=== PATIENT | female | born 1965 | race Two or more races ===

== ENCOUNTER 2021-08-20 08:49 | Outpatient (REF) | payer OTHER, SELFPAY ==
--- NOTE | ~2021-08-20 | XR_ITS ---
EXAMINATION: XR LUMBAR SPINE XR SACROCOCCYX CLINICAL INFORMATION: Fall. COMPARISON: CT scan of 05/21/2011. TECHNIQUE: Three-view of the lumbar spine. 3 views of the sacrum and coccyx. FINDINGS: There is no evidence of acute fracture, spondylolisthesis, or spondylolysis of the lumbar spine. There is some marginal spurring L2 through S1. There is partial sacralization left side of L5. No significant sacroiliac joint abnormalities appreciated. There is calcification of a nonaneurysmal abdominal aorta. No significant sacroiliac joint abnormalities appreciated. There is some increased sclerosis seen involving the facet joints L4 through S1. XR/XR lumbar spine 2-3V IMPRESSION: Mild lumbar spondylosis as described without evidence of acute fracture, spondylolisthesis, or spondylolysis. No significant bony abnormality of the sacrum and coccyx identified.
--- NOTE | ~2021-08-20 | XR_ITS ---
EXAMINATION: XR LUMBAR SPINE XR SACROCOCCYX CLINICAL INFORMATION: Fall. COMPARISON: CT scan of 05/21/2011. TECHNIQUE: Three-view of the lumbar spine. 3 views of the sacrum and coccyx. FINDINGS: There is no evidence of acute fracture, spondylolisthesis, or spondylolysis of the lumbar spine. There is some marginal spurring L2 through S1. There is partial sacralization left side of L5. No significant sacroiliac joint abnormalities appreciated. There is calcification of a nonaneurysmal abdominal aorta. No significant sacroiliac joint abnormalities appreciated. There is some increased sclerosis seen involving the facet joints L4 through S1. XR/XR sacrum coccyx min 2V IMPRESSION: Mild lumbar spondylosis as described without evidence of acute fracture, spondylolisthesis, or spondylolysis. No significant bony abnormality of the sacrum and coccyx identified.
== END 2021-08-20 08:50 | disposition home or self-care (01) ==
LOC: HO.HMGCX 08:49
PROVIDERS: Visit Provider Nurse Practitioner Family
DX: Z91.81 History of falling (principal)
CPT/HCPCS: 72100; 72220

== ENCOUNTER → 2021-09-15 09:33 | Outpatient (BNVA) | payer OTHER, SELFPAY | PROVIDERS: PCP Nurse Practitioner Family; Referring Provider Nurse Practitioner Family; Visit Provider Surgery | DX: S30.0XXA Contusion of lower back and pelvis, initial encounter (principal) | CPT/HCPCS: 99202 ==

== ENCOUNTER 2021-09-29 08:53 | Outpatient (REF) | payer OTHER, SELFPAY ==
--- NOTE | ~2021-09-29 | US_ITS ---
EXAMINATION: US pelvic, LIMITED/FOLLOW UP CLINICAL INFORMATION: Pain and soreness right buttock post fall. Hematoma. COMPARISON: None TECHNIQUE: Grayscale and color imaging of the soft tissues of the right buttock using a linear and curved transducer FINDINGS: There is a 9.6 x 2.3 x 6.9 cm complex fluid collection in the right buttock likely representing a hematoma. US/US pelvic limited IMPRESSION: 9.6 x 2.3 x 6.9 cm complex fluid collection in the right buttock likely representing a hematoma.
== END 2021-09-29 08:54 | disposition home or self-care (01) ==
LOC: HO.HMGCX 08:53
PROVIDERS: PCP Nurse Practitioner Family; Visit Provider Surgery
DX: S30.0XXA Contusion of lower back and pelvis, initial encounter (principal); W19.XXXA Unspecified fall, initial encounter; Y93.9 Activity, unspecified; Y92.9 Unspecified place or not applicable; Y99.9 Unspecified external cause status
CPT/HCPCS: 76857

== ENCOUNTER → 2021-10-08 11:19 | Outpatient (BNVA) | payer OTHER, SELFPAY | PROVIDERS: PCP Nurse Practitioner Family; Referring Provider Nurse Practitioner Family; Visit Provider Surgery | DX: Z01.818 Encounter for other preprocedural examination (principal); S30.0XXD Contusion of lower back and pelvis, subsequent encounter | CPT/HCPCS: 99212 ==

== ENCOUNTER 2021-11-18 09:57 | Day surgery (SDC) | payer OTHER, SELFPAY ==
--- NOTE | 2021-11-17 09:35 | P.CONAN_ITS ---
Documented by User: Susanna Pritchard NP 11/17/21 09:36 HPI - Anesthesia Eval Consult details Narrative: 56yo F for Excision of large Hematoma to buttocks PMFSH Active Problems Active Problems: All Active Problems (Updated 09/10/21 @ 14:21 by MARKUS Canas) Hematoma (Acute) Post-menopausal (Acute) Physical exam (Acute) Fall (Acute) Social History Social History Housing: House Patient Tobacco Use Status: Current everyday Tobacco user Tobacco use type: Cigarette Cigarettes Per Day: 0.75 Smoked in Last 30 Days: No e-Cigarette/Vaping Use: Never Used Second Hand Smoke Exposure: Yes Use of substances other than those prescribed or required for medical reasons: No Are you DNR?: No Advance Directives: No Advance Directives Information Provided: Yes Recently lost weight without trying: No service: No Current occupational status: employed 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 [employer] Current occupational exposures/hazards: No Meds Allergies Allergy/AdvReac Type Severity Reaction Status Date / Time No Known Allergies Allergy Verified 10/08/21 11:25 Exam Exam Date and Time: November 17, 2021 0935 Assessment and Plan Assessment Anesthesia Assessment: Chart Reviewed Documented by User: Joi Zapata MD 11/18/21 12:42 HPI - Anesthesia Eval Consult details Narrative: 56yo F for Excision of large Hematoma to Right buttocks PMFSH Active Problems Active Problems: All Active Problems (Updated 09/10/21 @ 14:21 by TONNY Canas) Hematoma (Acute) Post-menopausal (Acute) Physical exam (Acute) Fall (Acute) Smoker. Smoked this am Family History Family history of problems with anesthesia: No Surgical History History of Problems with Anesthesia: No Social History Social History Housing: House Patient Tobacco Use Status: Current everyday Tobacco user Tobacco use type: Cigarette Cigarettes Per Day: 0.75 Smoked in Last 30 Days: No e-Cigarette/Vaping Use: Never Used Second Hand Smoke Exposure: Yes Use of substances other than those prescribed or required for medical reasons: No Are you DNR?: No Advance Directives: No Advance Directives Information Provided: Yes Recently lost weight without trying: No service: No Current occupational status: employed 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 Diminished Assessment and Plan Assessment Anesthesia Assessment: Anesthesia Plan Discussed Final Anesthetic Review Family History of Problems with Anesthesia: No History of Problems with Anesthesia: No NPO: Yes ASA Class: II Final Preanesthetic Review: No Changes in Pt Med Stat, Meds/Allgs Chart Reviewed, Consent Obtained/Reviewed and Anes Risks/Benef Reviewed Patient Risk: Low Procedure Risk: Low Assessment/Block/Sedation in SS: Assess/Block/Sedation-SS Anesthetic Plan Anesthetic Plan: GA Disposition: Standard PACU
[2021-11-18] VITALS (13 sets, daily range): BP systolic 106–127; BP diastolic 43–70; PULSE 53–75; RESP 12–18; TEMP 36.2–37.3; O2SAT 92–98; BMI 29.2
--- NOTE | 2021-11-18 10:58 | P.HPSUR_ITS ---
Pre-Procedural Eval Section A Date of Service: 11/18/21 Section B Chief Complaint: Other injury of unspecified body region, Details of Present Illness: Has had a hematoma on the right buttock a months after falling, with persistent pain Relevant Family History (Specify if Yes): No Relevant Social History: None Present Medications: see Short Stay Collaborative assessment Medical History: No relevant PMH History of Previous Operations: No relevant previous surgery Allergies: Allergies Allergy/AdvReac Type Severity Reaction Status Date / Time No Known Allergies Allergy Verified 10/08/21 11:25 Review of Systems Sugical H&P ROS: Negative: Constitution, Cardiovascular, Respiratory, Neurological, Psychiatric, Hem-Onc, Allergic/Immunologic, Gastrointestinal, Genitourinary, Musculoskeletal, Integumentary, Endocrine and Eyes/Ears/N ose/Throat Exam Surgical H&P Exam: Normal: HEENT, Normal: Heart, Normal: Lungs, Normal: Extremities, Normal: Abdomen, Normal: Skin and Normal: Neurological Exam Comment: swelling on the right buttock vague margins, some tenderness, Plan Diagnosis/Plan: Unchanged I have reviewed the history and physical and performed a pertinent physical examination on my patient. No changes have occurred unless specified.
[2021-11-18] MEDS: Lactated Ringers 1,000 ML 100 ML IVCONT (11:24)
--- NOTE | 2021-11-18 12:20 | P.OP_ITS ---
Operative Note Operative Note Date of Service: 11/18/21 Narrative: Preop diagnosis: hematoma, right buttock Postop diagnosis: Lipoma, right buttock Procedure: Excision of hematoma, right buttock Surgeon: Bridger Puckett MD district administrative assistant: SHARAD Arevalo The patient is a 56 year female who has had a mass on the right buttock states July,. She says she had noticed this after falling her backside at that time. She had ultrasound suggesting I hematoma as well. However, this did not resolve and decreased in size. She says that this continued to bother her so she wanted this removed. She understood the technique of excision under anesthesia. She was aware of the risks, benefits, and alternatives She was brought to the operating room placed in left lateral decubitus position under general anesthesia via LMA. The right buttock was prepped and draped in the usual sterile fashion. A surgical time-out was done. The patient received Vaseline 2 g IV preoperatively. The vague mass right buttock measured about 10 cm x 10 cm in diameter. I made a transverse incision in the skin overlying this after infiltration with lidocaine 1%. I am incision using blade 15. And this was carried down through the full-thickness of the skin subcutaneous fat with electrocautery. I continued to carried down this dissection on until I noticed that her was lipomatous mass underneath. This lipomatous mass was not well-defined and had poor planes. This was very loculated and it was difficult to for this of the rest of the subcutaneous layer. I continued to excise this lipomatous mass come off of the fascia of the buttock. This lipomatous tissue also broke down easily to smaller pieces. I then continued to remove whether worse left within the area in a piecemeal fashion. I then copiously irrigated the cavity. I had to remove some excess skin and subcutaneous fat adjacent to the incision. This was removed as a flap of excess skin and fat. I then proceeded to reapposed the deep subcutaneous layer with Dexon 3-0 interrupted sutures. Skin closure was achieved with Dexon 4-0 subcuticular running stitch. The incision was infiltrated with Marcaine 0.5% for postop analgesia and the procedure was completed The patient tolerated well. The complication noted. Initial and final counts of sponges and instruments were correct. Estimated blood loss was about 25 cc . The patient was extubated without difficulty and transferred to the recovery room with stable vital signs.
[2021-11-18] MEDS: oxyCODONE HCl Immed Release 5 MG TABLET PO ×2 (12:49→13:40)
[2021-11-18] MEDS: Acetaminophen 325 MG TABLET 650 MG PO (12:49)
[2021-11-18] MEDS: fentaNYL citrate/PF 100 MCG/2 ML VIAL 25 MCG IVPUSH ×4 (12:50→13:09)
== END 2021-11-18 14:54 | disposition home or self-care (01) ==
PROVIDERS: PCP Nurse Practitioner Family; Visit Provider Surgery
PROC: (CPT 21931; principal; 2021-11-18 11:50)
DX: D17.1 Benign lipomatous neoplasm of skin and subcutaneous tissue of trunk (principal); S30.0XXA Contusion of lower back and pelvis, initial encounter; W18.30XA Fall on same level, unspecified, initial encounter; Y93.9 Activity, unspecified; Y92.9 Unspecified place or not applicable; Y99.8 Other external cause status
CPT/HCPCS: 21931; 88304; J0690; J2250; J2405; J3010

== ENCOUNTER → 2021-12-01 09:41 | Outpatient (BNVA) | payer OTHER, SELFPAY | PROVIDERS: PCP Nurse Practitioner Family; Referring Provider Nurse Practitioner Family; Visit Provider Surgery | DX: Z13.89 Encounter for screening for other disorder (principal) ==

== ENCOUNTER → 2021-12-04 10:24 | Outpatient (BNVA) | payer OTHER, SELFPAY | PROVIDERS: PCP Nurse Practitioner Family; Referring Provider Nurse Practitioner Family; Visit Provider Surgery | DX: Z48.817 Encounter for surgical aftercare following surgery on the skin and subcutaneous tissue (principal); Z87.2 Personal history of diseases of the skin and subcutaneous tissue | CPT/HCPCS: 99212 ==

== ENCOUNTER → 2022-01-05 08:53 | Outpatient (BNVA) | payer OTHER, SELFPAY | PROVIDERS: PCP Nurse Practitioner Family; Visit Provider Surgery | DX: Z09 Encounter for follow-up examination after completed treatment for conditions other than malignant neoplasm (principal); D17.1 Benign lipomatous neoplasm of skin and subcutaneous tissue of trunk; Z80.0 Family history of malignant neoplasm of digestive organs | CPT/HCPCS: 99212 ==

== ENCOUNTER 2022-05-02 06:47 | Outpatient (REF) | payer OTHER, SELFPAY ==
[2022-05-02 11:22] LABS: MANUAL DIFF FLAG NO
[2022-05-02 11:30] LABS: Appearance Urine Cloudy; Color Urine Yellow; Glucose Urine UA Negative (Negative); Leukocyte Esterase Urine Negative (Negative); Nitrite Urine Negative (Negative); Specific Gravity - Urine 1.015 (1.005-1.025); Urine Blood Negative (Negative); Urine Ketones Negative (Negative); Urine Protein Negative (Neg-Trace)
[2022-05-02 11:33] LABS: Basophils Absolute Auto 0.1 X10*3/uL (0.0-0.2); Basophils Percent Auto 0.5 % (0-2); Eosinophils Absolute Auto 0.3 X10*3/uL (0.0-0.4); Eosinophils Percent Auto 2.7 % (0-4); Hemoglobin 13.3 g/dl (12.0-16.0); Imm Gran Abs Auto 0.03 X10*3/uL (0.00-0.03); Imm Gran Pct Auto 0.3 % (0.0-0.4); Lymphocytes Absolute Auto 3.1 X10*3/uL (1.2-4.9); Lymphocytes Percent Auto 33.5 % (20-40); Mean Corpuscular HGB Conc 31.7 g/dl (31.0-35.0); Mean Corpuscular Hemoglobin 28.4 pg (27.0-33.0); Mean Corpuscular Volume 89.7 fL (80.0-98.0); Mean Platelet Volume 10.1 fL (9.4-12.3); Monocytes Absolute Auto 0.9 X10*3/uL (0.1-1.2); Monocytes Percent Auto 9.5 % (2-11); Neutrophils Percent Auto 53.5 % (45-73); Platelet Count 230 X10*3/uL (160-400); Red Blood Count 4.68 X10*6/uL (4.20-5.50); Red Cell Distribution Width 13.4 % (11.0-16.0); White Blood Count 9.3 X10*3/uL (4.8-10.8)
[2022-05-02 11:54] LABS: Alanine Aminotransferase 18 U/L (0-31); Albumin Level 4.1 g/dL (3.5-5.0); Alkaline Phosphatase 131 U/L (39-117); Anion Gap 15 (12-20); Aspartate Amino Transferase 18 U/L (5-31); Bilirubin Total 0.2 mg/dL (0.0-1.0); Blood Urea Nitrogen 15 mg/dL (9-16); Calcium 9.1 mg/dL (8.4-10.2); Carbon Dioxide 25 mmol/L (22-29); Chloride 105 mmol/L (96-108); Cholesterol 236 mg/dL; Estimated Glomerular Filt Rate 57; Glucose Fasting 103 mg/dL (60-99); HDL Cholesterol 39 mg/dL; LDL Cholesterol Calculated 147 mg/dl; Potassium 4.1 mmol/L (3.3-5.1); Sodium 141 mmol/L (135-145); Total Protein 6.9 g/dL (6.5-8.0); Triglycerides 253 mg/dL
[2022-05-02 12:18] LABS: TSH reflex Free T4 1.69 uIU/mL (0.32-4.0); Vitamin D 25-OH Total 24.7 ng/mL (>30)
== END 2022-05-02 06:48 | disposition home or self-care (01) ==
LOC: HO.HMGCLDS 06:47
PROVIDERS: PCP Nurse Practitioner Family; Visit Provider Nurse Practitioner Family
DX: Z00.00 Encounter for general adult medical examination without abnormal findings (principal); Z78.0 Asymptomatic menopausal state
CPT/HCPCS: 36415; 80053; 80061; 81003; 82306; 84443; 85025

== ENCOUNTER 2022-05-25 14:53 | Outpatient (REF) | payer OTHER, SELFPAY ==
--- NOTE | ~2022-05-25 | MM_ITS ---
EXAMINATION: MM SCREENING DIGITAL BREAST TOMOSYNTHESIS, BILATERAL CLINICAL INFORMATION: Screening. Asymptomatic. COMPARISON: Mammography: 02/24/2019 and studies dating back to 02/17/2017. TECHNIQUE: Digital breast tomosynthesis was performed in both the craniocaudal and mediolateral oblique views along with computer-aided detection (CAD). Synthesized 2D images were generated from the tomosynthesis. FINDINGS: The breasts are heterogeneously dense, which may obscure small masses (ACR BI-RADS breast composition Category c). There are no significant masses, abnormal suspicious calcifications, or other abnormalities. There is multiplicity and bilaterality of calcifications. There is a tight grouping of calcifications within the inferior aspect of the left breast which appear to be associated with a vessel. A tight, rounded grouping of calcifications is seen within the superior aspect of the right breast with the appearance of a calcifying fibroadenoma. MM/MM tomosynthesis screening BI IMPRESSION: No mammographic evidence of malignancy. ASSESSMENT: BI-RADS 2: Benign RECOMMENDATION: Routine annual mammography screening. This patient's information was entered into a reminder system with a target due date for their next mammogram.
== END 2022-05-25 14:54 | disposition home or self-care (01) ==
LOC: HO.MAMMO 14:53
PROVIDERS: PCP Nurse Practitioner Family; Visit Provider Nurse Practitioner Family
DX: Z12.31 Encounter for screening mammogram for malignant neoplasm of breast (principal)
CPT/HCPCS: 77063; 77067

== ENCOUNTER → 2022-05-25 15:46 | Outpatient (REF) | payer OTHER, SELFPAY ==
--- NOTE | 2022-05-25 15:51 | CA_ITS ---
Transthoracic Echocardiogram Patient (Last, First, Middle): Yeimi Sr L Gender: Female Date of : 1965 Age: 56 Procedure Date: 05/25/2022 Procedure Type: Transthoracic Echocardiogram Location: OP Height: 160.02 cm Weight: 74.84 kg BSA: 1.78 m2 Heart Rate: bpm BP: 133 / 72 mmHg Mill Operator Helper: MARC Referring MD: Raoul Gonsales [facility] Oxidation Engineer: Faraz Gordon MD Symptoms: R01.1 - Cardiac murmur, unspecified Study Quality: Fair ECG Rhythm: Sinus Conclusions: - Essentially normal study Findings Left Ventricle Normal left ventricular size, thickness, and systolic function. The visually estimated ejection fraction is between 60-65%. Spectral Doppler is indicative of a normal filling pattern. Right Ventricle Normal right ventricular cavity size and systolic function. Atria Both atria are normal in size. There is lipomatous hypertrophy of the interatrial septum. There is no evidence of interatrial shunt. Aortic Valve The aortic valve structure and function is likely normal. There is no aortic valve stenosis. There is no aortic valve regurgitation. Mitral Valve Normal mitral valve structure and function. There is trace mitral valve regurgitation. There is no mitral valve stenosis. Pulmonic Valve The pulmonic valve was not well visualized. Tricuspid Valve Likely normal tricuspid valve structure and function. There is trace tricuspid valve regurgitation. The right ventricular systolic pressure is normal. The right ventricular systolic pressure is 14 mmHg. Normal right atrial pressure. There is no evidence of pulmonary hypertension. Great Vessels All visible segments of the aorta are normal in size. The pulmonary artery was not well visualized. Venous The inferior vena cava is normal in size and collapses greater than 50% with inspiration. Pericardium/Pleural There is no evidence of pericardial effusion. Prior Study Comparison No significant change compared to prior study dated: 05/24/2019. Measurements 2D Linear Measurements IVSd: 1.21 0.6-0.9/0.6-1.0 cm LVIDd: 4.49 3.9-5.3/4.2-5.9 cm LVIDd Index: 2.52 2.4-3.2/2.2-3.1 cm/m2 LVIDs: 3.21 2.0-3.6 cm LVPWd: 1.26 0.7-1.1 cm Ao Root: 3.00 2.1-3.5 cm LA Diam: 4.00 2.7-3.8/3.0-4.0 cm LAIDs Index: 2.25 1.5-2.3 cm/m2 LV Mass: 256.50 67-162/88-224 g LV Mass Index: 144.10 43-95/49-115 g/m2 LVOT Diam: 2.00 3.0+(-)1.3 cm Mitral Valve MV Pk E: 0.84 MV PK A: 0.84 MV Decel Time: 222.00 E/A: 1.00 E'Lateral: 7.72 E'Medial: 6.96 E/E' Med: 12.10 E/E' Lat: 10.90 PHT: 65.00 MVA PHT: 3.38 Decel Spalding: 3.81 Aortic Valve AoV Pk Hilario: 1.80 AoV Mn Hilario: 1.02 AoV VTI: 0.38 AoV Pk Grad: 13.00 Aov Mn Grad: 5.00 TAHIR Cont.VTI: 2.31 LVOT LVOT Pk Hilario: 1.17 LVOT Mn Hilario: 0.70 LVOT VTI: 0.28 LVOT Pk Grad: 5.00 LVOT Mn Grad: 2.00 LVOT Diam: 2.00 LVOT Area: 3.14 Diastolic Function MV Pk E: 0.84 MV Pk A: 0.84 E/A: 1.00 E'Medial: 6.96 E/E' Med: 12.10 E' Laterial: 7.72 E/E' Lat: 10.90 Right Ventricle TAPSE (mm): 21.00 TVS' Hilario: 8.00 Tricuspid Valve TR Pk Hilario: 1.69 TR Pk Grad: 11.00 RA Press: 3.00 RVSP: 14.00 Great Vessels Aorta Ao Root-2D: 3.00 2.0-3.7 cm Ao Asc: 3.40 2.1-3.4 cm Pulmonary Valve PV Pk Hilario: 1.06 Peak PV Grad: 4.00 Updated in Other Vendor System with Status of Final Faraz Gordon MD electronically signed on 05/25/2022 5:57:45 PM with status of Final
== END ==
LOC: HO.CARD 15:46
PROVIDERS: PCP Nurse Practitioner Family; Visit Provider Nurse Practitioner Family
DX: R01.1 Cardiac murmur, unspecified (principal)
CPT/HCPCS: 93306

== ENCOUNTER 2022-06-12 14:02 | Outpatient (REF) | payer BC, OTHER, SELFPAY ==
--- NOTE | ~2022-06-12 | CT_ITS ---
EXAMINATION: CT CHEST SCREENING CLINICAL INFORMATION: Current smoker. 48 pack year history. COMPARISON: Previous chest x-ray from 2010 TECHNIQUE: Multidetector volumetric CT imaging of the chest is performed without contrast using low dose technique. Additional 2D coronal and sagittal reformatted images and axial 3D maximum intensity projection (MIP) images are generated on the CT workstation. This CT examination was performed using dose optimization techniques as appropriate, variously including the following: *Automated exposure control *Adjustment of mA and/or kV according to patient size (this includes techniques or standardized protocols for targeted exams where dose is matched to indication/reason for exam; i.e. extremities or head) *Use of iterative reconstruction technique DLP: 43 mGy-cm FINDINGS: LUNGS: There is evidence of mild emphysema. There are scattered areas of increased peribronchial attenuation. This is greatest in the upper lungs may represent respiratory bronchiolitis related to smoking. There is a 3 mm right upper lobe nodule axial image 196 series 5. There is a 3 mm left lower lobe nodule axial image 213 series 5. There are are increased peripheral interstitial markings and attenuation questionable for mild interstitial disease. No endobronchial or endotracheal lesion. MEDIASTINUM: The mediastinum is normal. CORONARY ARTERY CALCIFICATION: Moderate PLEURA: There is no pleural effusion. No pleural mass or thickening. AXILLA: No lymphadenopathy. UPPER ABDOMEN: Unremarkable OSSEOUS STRUCTURES: Mild degenerative changes of the spine. CT/CT lung screening IMPRESSION: Mild emphysema. Small pulmonary nodules. Increased peribronchial attenuation questionable respiratory bronchiolitis related to smoking. There is also question of mild interstitial disease. Moderate coronary artery calcification. ASSESSMENT: Lung-RADS category 2: Benign RECOMMENDATION: Annual low-dose chest CT follow-up recommended.
== END 2022-06-12 14:03 | disposition home or self-care (01) ==
LOC: HO.CT 14:02
PROVIDERS: PCP Nurse Practitioner Family; Visit Provider Physician Assistant Medical
DX: Z12.2 Encounter for screening for malignant neoplasm of respiratory organs (principal); F17.210 Nicotine dependence, cigarettes, uncomplicated
CPT/HCPCS: 71271; G0296

== ENCOUNTER → 2022-08-11 15:38 | Outpatient (BNVA) | payer BC, SELFPAY | PROVIDERS: PCP Nurse Practitioner Family; Visit Provider Internal Medicine | DX: Z13.89 Encounter for screening for other disorder (principal) ==

== ENCOUNTER 2022-09-16 10:17 | Outpatient (REF) | payer OTHER, SELFPAY ==
[2022-09-19 02:59] LABS: HPV mRNA E6/E7 rflx Not Detected (Not Detected)
== END 2022-09-16 10:18 | disposition home or self-care (01) ==
LOC: HO.LNP 10:17
PROVIDERS: PCP Nurse Practitioner Family; Visit Provider Obstetrics & Gynecology
DX: Z01.419 Encounter for gynecological examination (general) (routine) without abnormal findings (principal); Z11.51 Encounter for screening for human papillomavirus (HPV)
CPT/HCPCS: 87624; 88142

== ENCOUNTER 2022-11-12 06:23 | Day surgery (SDC) | payer OTHER, SELFPAY ==
[2022-11-09 09:38] VITALS: BMI 29.0
--- NOTE | 2022-11-11 11:56 | HO.ANESPROP2 ---
Documented by User: Susanna Pritchard NP 11/11/22 11:57 HPI - Anesthesia Eval Consult details Narrative: 57yo F for Colonoscopy PMFSH Active Problems Active Problems: All Active Problems (Updated 10/28/22 @ 09:17 by Raoul Gonsales, [facility]) Depression (Acute) Well woman exam (Acute) Family history of breast cancer (Acute) Family history of colon cancer (Acute) Systolic murmur (Acute) Nicotine dependence, cigarettes, uncomplicated (Acute) Post-menopausal (Acute) Past Medical History Medical History Family history of colon cancer Kienbock's disease Nicotine dependence, cigarettes, uncomplicated Systolic murmur Family History Family history of problems with anesthesia: No Surgical History Surgical History History of appendectomy History of History of excision of mass History of surgery on right wrist History of tonsillectomy Hx of tubal ligation History of Problems with Anesthesia: No Social History Social History Household Members: Spouse Housing: House Alcohol intake: never Patient Tobacco Use Status: Current everyday Tobacco user Tobacco use type: Cigarette Cigarette Packs Per Day: 1 Cigarettes Per Day: 20 e-Cigarette/Vaping Use: Never Used Second Hand Smoke Exposure: Yes Are you DNR?: No Advance Directives: No Advance Directives Information Provided: Yes Recently lost weight without trying: No Nutrition Risks: No Nutritional Risk Patient : No service: No Current occupational status: employed Current [place]: [employer] [place] [employer] Current occupational exposures/hazards: No Sexual orientation: Straight/Heterosexual Gender identity: Female Cognitive needs: No Hearing needs: No Vision needs: No Meds Allergies Allergy/AdvReac Type Severity Reaction Status Date / Time No Known Allergies Allergy Verified 10/28/22 08:59 Exam Exam Date and Time: November 11, 2022 1156 Height,Weight and Vital Signs: Height 5 ft 4 in Weight 76.657 kg Pertinent Lab Results Pertinent Lab Results: Laboratory Tests 05/02/22 05/02/22 06:57 06:57 WBC 9.3 Hgb 13.3 Hct 42.0 Plt Count 230 Sodium 141 Potassium 4.1 Chloride 105 Carbon Dioxide 25 BUN 15 Creatinine 1.00 Narrative Narrative: ECHO 05/2022 Conclusions: - Essentially normal study? Assessment and Plan Assessment Anesthesia Assessment: Chart Reviewed Final Anesthetic Review Family History of Problems with Anesthesia: No History of Problems with Anesthesia: No Documented by User: Clare Terrell MD 11/12/22 07:48 REPLACED BY [facility] Past Medical History Medical History Family history of colon cancer Kienbock's disease Nicotine dependence, cigarettes, uncomplicated Systolic murmur Surgical History Surgical History History of appendectomy History of History of excision of mass History of surgery on right wrist History of tonsillectomy Hx of tubal ligation History of Problems with Anesthesia: No Social History Social History Household Members: Spouse Housing: House Alcohol intake: never Patient Tobacco Use Status: Current everyday Tobacco user Tobacco use type: Cigarette Cigarette Packs Per Day: 1 Cigarettes Per Day: 20 e-Cigarette/Vaping Use: Never Used Second Hand Smoke Exposure: Yes Are you DNR?: No Advance Directives: No Advance Directives Information Provided: Yes Recently lost weight without trying: No Nutrition Risks: No Nutritional Risk Patient : No service: No Current occupational status: employed Current occupation: [employer] [place] [employer] Current occupational exposures/hazards: No Sexual orientation: Straight/Heterosexual Gender identity: Female Cognitive needs: No Hearing needs: No Vision needs: No Meds Allergies Allergy/AdvReac Type Severity Reaction Status Date / Time No Known Allergies Allergy Verified 10/28/22 08:59 Exam Airway Mallampati Class: II TM Dist: >3cm Neck ROM: Full Denture: Upper and Lower Loose/Missing/Broken Teeth: Yes, Upper and Lower Heart: RRR Lungs: CTA Assessment and Plan Final Anesthetic Review History of Problems with Anesthesia: No NPO: Yes ASA Class: II Final Preanesthetic Review: Meds/Allgs Chart Reviewed, Consent Obtained/Reviewed and Anes Risks/Benef Reviewed Patient Risk: Low Procedure Risk: Low Anesthetic Plan Anesthetic Plan: MAC: Disposition: Standard PACU
[2022-11-12 06:38] VITALS: BP 169/91; PULSE 80; RESP 20; TEMP 36.8; O2SAT 96
[2022-11-12] MEDS: Lactated Ringers 1,000 ML 100 ML IVCONT (07:07)
--- NOTE | 2022-11-12 07:14 | MHC.SHP ---
Pre-Procedural Eval Section A Date of Service: 11/12/22 The patient is an INPATIENT: No The History & Physical has been completed within 30 days and I have reviewed it.: No Section B Chief Complaint: Screening, Family history of colon cancer Relevant Family History (Specify if Yes): Yes Relevant Social History: Tobacco Use Present Medications: see Short Stay Collaborative assessment Medical History: Significant History (Family history of colon cancer Kienbock's disease Nicotine dependence, cigarettes, uncomplicated Systolic murmur) History of Previous Operations: Relevant previous surgery/procedure and date(s) (History of appendectomy History of History of excision of mass History of surgery on right wrist History of tonsillectomy) Allergies: Allergies Allergy/AdvReac Type Severity Reaction Status Date / Time No Known Allergies Allergy Verified 10/28/22 08:59 Review of Systems Sugical H&P ROS: Negative: Constitution, Cardiovascular, Respiratory and Gastrointestinal Exam Surgical H&P Exam: Normal: Heart, Normal: Lungs, Normal: Extremities and Normal: Abdomen Plan Diagnosis/Plan: Unchanged I have reviewed the history and physical and performed a pertinent physical examination on my patient. No changes have occurred unless specified. Time Spent With Patient Time: Total time managing care of this patient today ____ minutes.
--- NOTE | 2022-11-12 08:30 | P.OP_ITS ---
Operative Note Operative Note Date of Service: 11/12/22 Narrative: COLONOSCOPY TILL CECUM WITH BIOPSIES AND SNARE POLYPECTOMY Pre-op diagnosis: Colon cancer screening, personal history of colon polyps, family history of colon cancer Post-op diagnosis:? Gastric bypass surgery status, Colon polyps, diverticulosis, hemorrhoids Endoscopist:? Martina Ascencio MD Anesthesia:?MAC Consent: Indications for the procedure and potential complications of bleeding, perforation, reaction to medications and missed diagnosis were discussed with the patient and informed consent was obtained. Instrument: Olympus PCF H 190 L variable stiffness pediatric colonoscope Monitoring: Vital signs and clinical assessment, intermittent blood pressure monitoring, continuous EKG monitoring, Pulse oximetry and Carbon Dioxide monitoring were done throughout the procedure. Please see anesthesia flowsheet. Colon withdrawl time was 23 minutes. Procedure: The patient was placed in the left lateral decubitis position and pre-procedure medications were administered. After a digital rectal examination of the ano-rectum, the video colonoscope was inserted into the rectum and advanced through the colon to the cecum. The colonoscope was slowly withdrawn in a retrograde panoramic fashion and the colon mucosa was carefully examined including a retroflexed view of the rectum. Findings and interventions are described below. Procedure Difficulty: Without difficulty Findings: Terminal Ileum: Not evaluated Cecum: Normal Ascending Colon: A 4-5 mm sessile polyp in mid ascending colon, removed with a cold biopsy Transverse Colon: A 10 mm sessile polyp removed with a hot snare. Scattered moderate diverticulosis Descending Colon: Scattered moderate diverticulosis Sigmoid Colon: Moderate diverticulosis Rectum: A few 5 to 10 mm hyperplastic appearing polyps - one removed with a cold biopsy and a 2nd polyp removed with a hot snare. Ano-rectum: Moderate internal hemorrhoids and perianal skin tags Colon preparation: Good after some irrigation Impression and Post Procedure Diagnosis: Colonoscopy Findings: Four polyps removed Moderate diverticulosis seen in the left and transverse colon Moderate hemorrhoids on retroflexed exam. Plan: Await pathology results Patient has an appointment on 11/27/22 in the GI Clinic with Dr Oshea. Repeat Colonoscopy interval based on path results - in 3-5 years if polyps are adenomatous and 10 years if polyps are hyperplastic. Above findings were reviewed with the patient and colon polyps and di verticulosis handouts were given in the discharge area
[2022-11-12 08:31] VITALS: BP 104/52; PULSE 77; RESP 20; TEMP 36.1; O2SAT 94
[2022-11-12 08:46] VITALS: BP 134/67; PULSE 68; RESP 16; TEMP 36.2; O2SAT 94
== END 2022-11-12 09:41 | disposition home or self-care (01) ==
PROVIDERS: PCP Nurse Practitioner Family; Visit Provider Internal Medicine Gastroenterology
PROC: 0DJD8ZZ Inspection of Lower Intestinal Tract, Via Natural or Artificial Opening Endoscopic (ICD-10-PCS; CPT 45378; principal; 2022-11-12 07:30)
DX: Z12.11 Encounter for screening for malignant neoplasm of colon (principal); Z86.010 Personal history of colon polyps; Z80.0 Family history of malignant neoplasm of digestive organs; Z80.3 Family history of malignant neoplasm of breast; D12.3 Benign neoplasm of transverse colon; K63.5 Polyp of colon; K62.1 Rectal polyp; K57.30 Diverticulosis of large intestine without perforation or abscess without bleeding; K64.8 Other hemorrhoids; K64.4 Residual hemorrhoidal skin tags; M92.211 Osteochondrosis (juvenile) of carpal lunate [Kienbock], right hand; R01.1 Cardiac murmur, unspecified; Z79.899 Other long term (current) drug therapy; Z98.84 Bariatric surgery status; F17.210 Nicotine dependence, cigarettes, uncomplicated
CPT/HCPCS: 45385; 45380; 88305

== ENCOUNTER → 2022-11-27 13:36 | Outpatient (BNVA) | payer OTHER, SELFPAY | PROVIDERS: PCP Nurse Practitioner Family; Visit Provider Internal Medicine ==

== ENCOUNTER 2023-04-19 09:34 | Outpatient (AMB) | payer OTHER, SELFPAY ==
[2023-04-19 09:43] VITALS: BP 142/88; PULSE 79; O2SAT 97; BMI 28.2
--- NOTE | 2023-04-19 09:43 | MHC.PC.OV ---
Vital Signs 04/19/23 09:43 Height 5 ft 4 in Weight 164 lb 8 oz BMI 28.2 BP 142/88 H Blood Pressure Location Lt brachial Position Sitting Pulse 79 Pulse Source Pulse Oximeter Pulse Oximetry (%) 97 Oxygen Delivery Method Room Air Intake Visit Reasons: 3 month follow up (wellbutrin) Intake Note: pt mammo due next month did not get labs Allergies No Known Allergies Allergy (Verified 04/19/23 09:47) Medication List - Last Reconciled 04/19/23 by NILDA CanasMARGRET fluoxetine 10 mg PO DAILY 30 days Tobacco use date assessed: 04/19/23 Dental Screening Dental Screen Date: 04/19/23 Did you have a dental visit in the last 12 months?: No Did you have a dental problem in the last 6 months where you did not have access to dental care?: No Was dental information given to patient?: No HPI 3 month follow up (wellbutrin) HPI Details Depression: Pt reports that she stopped taking bupropion as it cause insomnia. Will start fluoxetine. Denies any SI and HI. PFSH Medical History Kienbock's disease Nicotine dependence, cigarettes, uncomplicated Systolic murmur Family history of colon cancer Surgical History Hx of colonoscopy Hx of tubal ligation History of excision of mass History of surgery on right wrist History of tonsillectomy History of appendectomy History of Social History Household Members: Spouse Housing: House Alcohol intake: never Patient Tobacco Use Status: Current everyday Tobacco user Tobacco use type: Cigarette Cigarettes Per Day: 10 e-Cigarette/Vaping Use: Never Used Second Hand Smoke Exposure: Yes service: No Current occupational status: employed 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 Darek Hu, Luciana Dotson, Shelton Ferris and colleagues, with an educational ayaz from [employer]. Review of Systems Const Reports as per HPI Physical exam (Primary Care) Vital Signs: Last Vital Signs Pulse 79 04/19/23 09:43 BP 142/88 H 04/19/23 09:43 Pulse Ox 97 04/19/23 09:43 Oxygen Delivery Method Room Air 04/19/23 09:43 BMI result Body Mass Index 28.2 Tobacco/Smoking Status: Tobacco use Status Tobacco use date assessed 04/19/23 04/19/23 09:49 Patient Tobacco Use Status Current everyday Tobacco 04/19/23 09:44 Tobacco use type Cigarette 04/19/23 09:44 e-Cigarette/Vaping Use Never Used 04/19/23 09:44 Thrive Assessment: Date of Thrive Assessment Date Thrive assessed 10/28/22 04/19/23 09:44 Const General: cooperative Orientation/consciousness: patient oriented x3 Resp Effort & Inspection: normal respiratory effort Auscultation: clear to auscultation bilaterally Cardio Other: ? faint systolic murmur Rate: regular rate Rhythm: regular rhythm Heart sounds: S1 normal heart sound present and S2 normal heart sound present Neuro General: patient oriented x3 Psych Appearance: grossly normal Mental Status: mental status grossly normal Speech and movement: Normal speech and movement present Affect: normal affect Attitude: cooperative Thought process: Normal thought process present Thought content: Normal thought content present Insight: Good insight present (Psych) Judgement: Good judgement present (Psych) Assessment and Plan Assessment & Plan (1) Depression: Code(s): F32.A - Depression, unspecified Plan The patient agreed to the use of a er medical technician for this encounter. Scribed for TONNY López by Madison Ruff er medical technician, on 04/19/2023 at 10:00 EST Medications: New fluoxetine 10 mg PO DAILY 30 tabs 2RF 30 days Coding Level of Care Code Est Pt Level 3 (12274) Diagnoses Depression F32.A
== END 2023-04-19 12:53 | disposition home or self-care (01) ==
PROVIDERS: PCP Nurse Practitioner Family; Visit Provider Nurse Practitioner Family
DX: F32.A Depression, unspecified (principal)
CPT/HCPCS: 99213

== ENCOUNTER 2023-05-28 08:38 | Outpatient (REF) | payer OTHER, SELFPAY | END 2023-05-28 08:39 | disposition home or self-care (01) | LOC: HO.MAMMO 08:38 | PROVIDERS: PCP Nurse Practitioner Family; Visit Provider Nurse Practitioner Family | DX: Z12.31 Encounter for screening mammogram for malignant neoplasm of breast (principal) | CPT/HCPCS: 77063; 77067 ==

== ENCOUNTER → 2023-05-28 08:45 | Outpatient (BNV) | payer OTHER, SELFPAY | PROVIDERS: PCP Nurse Practitioner Family; Visit Provider Radiology Diagnostic Radiology | DX: Z12.31 Encounter for screening mammogram for malignant neoplasm of breast (principal) | CPT/HCPCS: 77063; 77067 ==

== ENCOUNTER 2023-10-13 13:13 | Outpatient (REF) | payer OTHER, SELFPAY ==
[2023-10-13 13:31] LABS: MANUAL DIFF FLAG NO
[2023-10-13 13:58] LABS: Basophils Absolute Auto 0.1 X10*3/uL (0.0-0.2); Basophils Percent Auto 0.7 % (0-2); Eosinophils Absolute Auto 0.2 X10*3/uL (0.0-0.4); Eosinophils Percent Auto 2.5 % (0-4); Hematocrit 41.2 % (37.0-47.0); Hemoglobin 13.7 g/dl (12.0-16.0); Imm Gran Abs Auto 0.02 X10*3/uL (0.00-0.03); Imm Gran Pct Auto 0.2 % (0.0-0.4); Lymphocytes Absolute Auto 3.1 X10*3/uL (1.2-4.9); Lymphocytes Percent Auto 37.2 % (20-40); Mean Corpuscular HGB Conc 33.3 g/dl (31.0-35.0); Mean Corpuscular Hemoglobin 29.1 pg (27.0-33.0); Mean Corpuscular Volume 87.7 fL (80.0-98.0); Mean Platelet Volume 9.7 fL (9.4-12.3); Monocytes Absolute Auto 0.6 X10*3/uL (0.1-1.2); Monocytes Percent Auto 7.6 % (2-11); Neutrophils Absolute Auto 4.4 x10*3/uL (2.0-8.3); Neutrophils Percent Auto 51.8 % (45-73); Platelet Count 244 X10*3/uL (160-400); Red Cell Distribution Width 13.7 % (11.0-16.0); White Blood Count 8.4 X10*3/uL (4.8-10.8)
[2023-10-13 14:25] LABS: Anion Gap 10 (12-20); Blood Urea Nitrogen 10 mg/dL (9-16); C Reactive Protein 0.79 mg/dL (< or = 0.50); Calcium 9.2 mg/dL (8.4-10.2); Carbon Dioxide 25 mmol/L (22-29); Chloride 108 mmol/L (96-108); Estimated Glomerular Filt Rate > 60; Glucose Random 137 mg/dL (60-115); Potassium 3.4 mmol/L (3.3-5.1); Sodium 140 mmol/L (135-145)
[2023-10-13 14:41] LABS: Erythrocyte Sedimentation Rate 23 MM/HR (0-20)
[2023-10-13 14:43] LABS: Rheumatoid Factor < 13.0 IU/mL (<15.0)
[2023-10-14 15:43] LABS: Anti Nuclear Antibody Screen NEGATIVE (NEGATIVE)
== END 2023-10-13 13:14 | disposition home or self-care (01) ==
LOC: HO.LAB 13:13
PROVIDERS: Absent Provider Podiatrist; PCP Nurse Practitioner Family; Visit Provider Nurse Practitioner Family
DX: M25.571 Pain in right ankle and joints of right foot (principal)
CPT/HCPCS: 36415; 80048; 84550; 85025; 85652; 86038; 86140; 86431

== ENCOUNTER 2023-11-22 11:10 | Outpatient (AMB) | payer OTHER, SELFPAY ==
--- NOTE | 2023-11-22 11:15 | MHC.OFFVIS ---
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 No complaints. Last Pap/HPV was negative in 10/01 Last Mammogram was BI-RADS 1 in 06/03 Last Colonoscopy was done in 12/01 [facility] Medical History Kienbock's disease Nicotine dependence, cigarettes, uncomplicated Systolic murmur Family history of colon cancer Surgical History Hx of colonoscopy Hx of tubal ligation History of excision of mass History of surgery on right wrist History of tonsillectomy History of appendectomy History of Social History Household Members: Spouse Housing: House Alcohol intake: never Patient Tobacco Use Status: Current everyday Tobacco user Tobacco use type: Cigarette Cigarettes Per Day: 10 e-Cigarette/Vaping Use: Never Used Second Hand Smoke Exposure: Yes service: No Current occupational status: employed 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 Current occupational exposures/hazards: No Sexual orientation: Straight/Heterosexual Gender identity: Female Cognitive needs: No Hearing needs: No Vision needs: No Female Reproductive History Menstrual Total pregnancies: 4 Full term: 3 Number of Living Children: 3 Ab spontaneous: 1 Date of last pap smear: 09/16/22 Date of Mammogram: 05/28/23 Review of Systems Const All systems reviewed & are unremarkable except as noted in HPI and below Card Reports as per HPI Resp Reports as per HPI GI Reports as per HPI and Reports no additional complaints Reports as per HPI Physical Exam Const General: cooperative, healthy appearing and comfortable Chest Chest palpation & inspection: normal inspection of the chest and normal palpation of entire chest wall Breast/axilla inspection: normal inspection of the breasts and normal inspection of the axillae Breast/axilla palpation: normal palpation of the breasts, normal palpation of the axillae and no axillary lymphadenopathy Resp Effort & Inspection: normal respiratory effort Auscultation: clear to auscultation bilaterally Percussion: percussion normal Cardio Palpation: normal PMI Rate: regular rate Rhythm: regular rhythm Heart sounds: no murmurs and no rubs Peripheral pulses: Peripheral pulses 2+ throughout GI Inspection: Yes normal to inspection Palpation (GI): Soft to palpation, nontender, no guarding, not rigid and No hepatosplenomegaly present Percussion: Yes normal to percussion Auscultation: normal bowel sounds Rectal Exam - Female: deferred General: Yes bladder normal to palpation External Female Exam: No lesion Speculum Exam - Vagina: normal appearance of the vagina, normal palpation, normal vaginal discharge and not erythematous Speculum Exam - Cervix: normal appearance of the cervix and normal palpation Bimanual exam- vagina & uterus: normal bimanual exam, normal palpation, uterine size normal, bladder normal to palpation, consistency normal and normal palpation Bimanual Exam- Adnexa, other: normal adnexae, no masses and no tenderness Assessment & Plan Assessment & Plan (1) Well woman exam: Code(s): Z01.419 - Encounter for gynecological examination (general) (routine) without abnormal findings Category: Medical Plan: Co testing not indicated this year. Counseled the patient about the recommended dietary allowance of 1200 mg of Calcium & 600 IU of vitamin D. Instructions given the patient to schedule next screening Mammogram in 06/04. The patient was instructed to perform monthly self-breast exams and schedule annual exam in a year. All questions answered and the patient verbalized understanding. Coding Level of Care Code New Pt Prev Care 40-64y(72437) Diagnoses Well woman exam Z01.419
[2023-11-22 11:16] VITALS: BP 126/82; BMI 28.7
== END 2023-11-22 11:41 | disposition home or self-care (01) ==
PROVIDERS: Visit Provider Obstetrics & Gynecology
DX: Z01.419 Encounter for gynecological examination (general) (routine) without abnormal findings (principal)
CPT/HCPCS: 99396

== ENCOUNTER 2023-11-22 11:10 | Outpatient (REF) | payer OTHER, SELFPAY | END 2023-11-22 11:11 | disposition home or self-care (01) | LOC: HO.LNP 11:10 | PROVIDERS: Visit Provider Obstetrics & Gynecology | DX: R31.29 Other microscopic hematuria (principal) | CPT/HCPCS: 87086 ==

== ENCOUNTER 2024-01-17 10:07 | Outpatient (REF) | payer OTHER, SELFPAY ==
[2024-01-19 18:03] LABS: Urine Cytology See Pathology rpt
== END 2024-01-17 10:08 | disposition home or self-care (01) ==
LOC: HO.LAB 10:07
PROVIDERS: PCP Nurse Practitioner Family; Visit Provider Urology
DX: R31.29 Other microscopic hematuria (principal); F17.210 Nicotine dependence, cigarettes, uncomplicated
CPT/HCPCS: 81003; 88112

== ENCOUNTER 2024-01-17 10:07 | Outpatient (AMB) | payer OTHER, SELFPAY ==
--- NOTE | 2024-01-17 10:08 | MHC.OFFVIS ---
Intake Visit Reasons: microhematuria Intake Note: Patient is present for microhematuria Urology Medication:none Antibiotic Allergy:none Blood Thinner:none Tunnel Elastic Operator Lockstitch Required: No Allergies No Known Allergies Allergy (Verified 01/17/24 10:08) Medication List - Last Reconciled 01/17/24 by Cornelio Bah MD fluoxetine 10 mg PO DAILY 90 days HPI Comments Details: Yeimi is a 58-year-old female who is here for evaluation due to microscopic hematuria. Comorbidity nicotine dependence. She was sent by guest relations officer for evaluation. I have discussed reasons for blood in the urine may include but are not limited to kidney stones, cancer in the urinary tract, kidney disease or inflammatory conditions of the urinary tract. I have discussed workup to include cystoscopy evaluation. Discussed importance for nicotine cessation. Will send urine for cytology, follow-up office cystoscopy. Small Electric Engine Technician Dr. You has already ordered a CT abdomen and pelvis with and without IV contrast. [facility] Medical History Kienbock's disease Nicotine dependence, cigarettes, uncomplicated Systolic murmur Family history of colon cancer Surgical History Hx of colonoscopy Hx of tubal ligation History of excision of mass History of surgery on right wrist History of tonsillectomy History of appendectomy History of Social History Household Members: Spouse Housing: House Alcohol intake: never Patient Tobacco Use Status: Current everyday Tobacco user Tobacco use type: Cigarette Cigarettes Per Day: 10 e-Cigarette/Vaping Use: Never Used Second Hand Smoke Exposure: Yes service: No Current occupational status: employed 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 Current occupational exposures/hazards: No Sexual orientation: Straight/Heterosexual Gender identity: Female Cognitive needs: No Hearing needs: No Vision needs: No Review of Systems Const All systems reviewed & are unremarkable except as noted in HPI and below Reports no additional complaints Eyes Reports no additional complaints ENT Reports no additional complaints Card Reports no additional complaints Resp Reports no additional complaints GI Reports no additional complaints Reports as per HPI Musc Reports no additional complaints Skin/Breast Reports system reviewed and no additional complaints, except as documented Neuro Reports no additional complaints Psych Reports no additional complaints Endo Reports no additional complaints Estevan/Lymph Reports no additional complaints Aller/Immun Reports no additional complaints Physical Exam Const General: cooperative, healthy appearing and no acute distress Orientation/consciousness: patient oriented x3 HEENT Head: Yes normal to inspection, Yes normocephalic and Yes atraumatic Eyes Conjunctivae: conjunctivae normal Neck Neck: Yes normal visual inspection and Yes trachea midline Chest Chest palpation & inspection: normal inspection of the chest Resp Effort & Inspection: normal respiratory effort Cardio Rate: regular rate GI Inspection: Yes normal to inspection Skin General skin exam: no rashes or lesions noted Neuro General: patient oriented x3 Extrem General: No edema Psych Appearance: grossly normal Results AMB Urinalysis, Automated UA Leukoctes 0 Tyrell/uL Last Edit by NATHANAEL Alonso on 01/17/24 10:21 UA Nitrite Negative Last Edit by NATHANAEL Alonso on 01/17/24 10:21 UA Urobilinogen 0.2 mg/dL Last Edit by Filemon Tucker CCM on 01/17/24 10:21 UA Protein 15 mg/dL Last Edit by Filemon Tucker CCM on 01/17/24 10:21 UA pH 6.0 Last Edit by Filemon Tucker CCM on 01/17/24 10:21 UA Blood 0 Jose/uL Last Edit by NATHANAEL Alonso on 01/17/24 10:21 UA Specific Durand 1.015 Last Edit by Filemon Tucker CCM on 01/17/24 10:21 UA Ketone Negative Last Edit by NATHANAEL Alonso on 01/17/24 10:21 UA Bilirubin 0 mg/dL Last Edit by Filemon Tucker CCM on 01/17/24 10:21 UA Glucose 0 mg/dL Last Edit by Filemon Tucker CCM on 01/17/24 10:21 Results Reviewed Results Reviewed: Laboratory Last Values Urine pH (Auto) 6.0 01/17/24 10:20 Specific Durand (Auto) 1.015 01/17/24 10:20 Urine Protein (Auto) 15 mg/dL 01/17/24 10:20 Glucose (UA)(Auto) 0 mg/dL 01/17/24 10:20 Urine Ketones (Auto) Negative 01/17/24 10:20 Urine Blood (Auto) 0 Jose/uL 01/17/24 10:20 Urine Nitrite (Auto) Negative 01/17/24 10:20 Urine Bilirubin (Auto) 0 mg/dL 01/17/24 10:20 Urine Urobilinogen (Auto) 0.2 mg/dL 01/17/24 10:20 Leukocyte Esterase (Auto) 0 Tyrell/uL 01/17/24 10:20 Assessment & Plan Assessment & Plan (1) Nicotine dependence, cigarettes, uncomplicated: Comment: (current smoker - onset 8yo, 1ppd- currently half a pack a day) Code(s): F17.210 - Nicotine dependence, cigarettes, uncomplicated Category: Medical (2) Microscopic hematuria: Code(s): R31.29 - Other microscopic hematuria Category: Medical Plan Will send urine for cytology, follow-up office cystoscopy. Small Electric Engine Technician Dr. You has already ordered a CT abdomen and pelvis with and without IV contras Orders: Orders AMB Urinalysis Automated Today Z13.9 - Encounter for screening, unspecified Patient Instructions: The patient had an opportunity to ask questions regarding treatment plan. The patient expressed understanding and agreement with the above treatment plan. The patient is aware they should contact our office by phone for worsening of their current condition or the appearance of new symptoms. Compliance is encouraged with any medications and followup testing that is ordered. It is a privilege to be allowed the opportunity to participate in the urologic care of your patient. If you have any questions or concerns regarding treatment for the above conditions please do not hesitate to contact me. The office telephone contact is [phone]. This note is constructed in part using voice recognition software. While every effort has been made to ensure accuracy aircraft pneudraulic systems mechanic errors may have been included. Yours sincerely, Cornelio Bah MD Coding Level of Care Code New Pt Level 4 (76899) Diagnoses Nicotine dependence, cigarettes, uncomplicated F17.210 Microscopic hematuria R31.29
== END 2024-01-17 10:37 | disposition home or self-care (01) ==
PROVIDERS: PCP Nurse Practitioner Family; Visit Provider Urology
DX: F17.210 Nicotine dependence, cigarettes, uncomplicated (principal); R31.29 Other microscopic hematuria; Z13.9 Encounter for screening, unspecified
CPT/HCPCS: 99204

== ENCOUNTER 2024-06-02 08:50 | Outpatient (REF) | payer OTHER, SELFPAY ==
--- NOTE | ~2024-06-02 | MM_ITS ---
EXAMINATION: MM SCREENING DIGITAL BREAST TOMOSYNTHESIS, BILATERAL CLINICAL INFORMATION: Screening. Asymptomatic. COMPARISON: Mammography: Comparison is made with available priors TECHNIQUE: Digital breast mammography with tomosynthesis is performed in both the craniocaudal and mediolateral oblique views along with computer-aided detection (CAD). FINDINGS: There are scattered areas of fibroglandular density (ACR BI-RADS breast composition Category b). There are no significant masses, abnormal calcifications, or other abnormalities. MM/MM tomosynthesis screening BI IMPRESSION: No mammographic evidence of malignancy. ASSESSMENT: BI-RADS BI-RADS 1 - Negative RECOMMENDATION: Routine annual mammography screening. 1 year F/U This examination should not preclude the clinical evaluation of a suspicious palpable abnormality. This patient's information was entered into a reminder system with a target due date for their next mammogram. Electronically signed by: Melvina Otto DO 06/02/2024 10:34 AM DARINEL
== END 2024-06-02 08:51 | disposition home or self-care (01) ==
LOC: HO.MAMMO 08:50
PROVIDERS: Visit Provider Nurse Practitioner Family
DX: Z12.31 Encounter for screening mammogram for malignant neoplasm of breast (principal)
CPT/HCPCS: 77063; 77067

== ENCOUNTER → 2024-06-02 09:00 | Outpatient (BNV) | payer OTHER, SELFPAY | PROVIDERS: Visit Provider Internal Medicine | DX: Z12.31 Encounter for screening mammogram for malignant neoplasm of breast (principal) | CPT/HCPCS: 77063; 77067 ==

== ENCOUNTER → 2024-07-18 11:53 | Outpatient (BNV) | payer OTHER, SELFPAY | PROVIDERS: Emergency Provider Emergency Medicine; PCP Nurse Practitioner Family; Visit Provider Radiology Diagnostic Radiology | DX: M54.2 Cervicalgia (principal) | CPT/HCPCS: 72125 ==

== ENCOUNTER → 2024-07-21 09:26 | Outpatient (BNVA) | payer OTHER, SELFPAY | PROVIDERS: PCP Nurse Practitioner Family; Visit Provider Physician Assistant | DX: Z13.89 Encounter for screening for other disorder (principal) | CPT/HCPCS: 99204 ==

== ENCOUNTER 2024-07-27 16:28 | Outpatient (REF) | payer OTHER, SELFPAY ==
[2024-07-27 16:45] LABS: Hematocrit 41.3 % (37.0-47.0); Hemoglobin 13.6 g/dl (12.0-16.0); Mean Corpuscular HGB Conc 32.9 g/dl (31.0-35.0); Mean Corpuscular Hemoglobin 29.2 pg (27.0-33.0); Mean Corpuscular Volume 88.8 fL (80.0-98.0); Mean Platelet Volume 9.4 fL (9.4-12.3); Platelet Count 244 X10*3/uL (160-400); Red Blood Count 4.65 X10*6/uL (4.20-5.50); Red Cell Distribution Width 13.5 % (11.0-16.0); White Blood Count 10.1 X10*3/uL (4.8-10.8)
== END 2024-07-27 16:29 | disposition home or self-care (01) ==
LOC: HO.LAB 16:28
PROVIDERS: PCP Nurse Practitioner Family; Visit Provider Internal Medicine
DX: K62.5 Hemorrhage of anus and rectum (principal)
CPT/HCPCS: 36415; 85027

== ENCOUNTER → 2024-07-28 10:53 | Outpatient (BNVA) | payer OTHER, SELFPAY | PROVIDERS: PCP Nurse Practitioner Family; Visit Provider Physician Assistant | DX: Z13.89 Encounter for screening for other disorder (principal) | CPT/HCPCS: 99213 ==

== ENCOUNTER 2024-12-11 08:07 | Outpatient (AMB) | payer OTHER, SELFPAY ==
--- NOTE | 2024-12-11 08:04 | MHC.PC.OV ---
Intake Visit Reasons: pre op - cataracts dec 18 or jan 01 Allergies No Known Allergies Allergy (Verified 07/18/24 11:52) Tobacco use date assessed: 04/19/23 Dental Screening Dental Screen Date: 04/19/23 HPI pre op - cataracts dec 18 or jan 01 HPI Details History of Present Illness The patient is a 59-year-old female presenting for preoperative evaluation related to cataract surgery. Her surgery is planned in two stages: the first for the right eye on December 18, followed by the left eye, tentatively on the 01 of January. She reports no current concerns regarding chest pain, respiratory symptoms, fever, chills, or worsening of visual symptoms other than those attributed to her cataracts. Review of Systems - Cardiovascular: Denies chest pain. - Respiratory: Denies shortness of breath. - General: Denies fever, chills. - Eyes: Denies new blurred vision beyond cataracts. Plan The patient is scheduled for cataract surgery, first on the right eye on December 18, with the left eye to follow potentially on January 01. I have cleared her for the scheduled cataract surgeries, feeling confident in the absence of symptoms that would necessitate adjustment in the planned approach. Discussion Notes During the consultation, I assessed the patient?s readiness for cataract surgery. We addressed all aspects of the planned surgeries, including the specific dates and sequence of procedures. The patient expressed enthusiastic agreement with the surgical plan, and I provided reassurance regarding the absence of symptoms that could delay or modify the approach. We did not discuss specific numerical risk estimates, but I emphasized the routine nature of these procedures and the importance of follow-up postoperatively. Patient Instructions - Prepare for your cataract surgeries as scheduled in December. - Follow any preoperative instructions provided by your surgical team. - Monitor your blood pressure regularly. - Report any unusual symptoms, like difficulty breathing or chest pain, before surgery. - Attend postoperative appointments as advised for follow-up care. [facility] Medical History Kienbock's disease Nicotine dependence, cigarettes, uncomplicated Systolic murmur Family history of colon cancer Surgical History Hx of colonoscopy Hx of tubal ligation History of excision of mass History of surgery on right wrist History of tonsillectomy History of appendectomy History of Social History Household Members: Spouse Housing: House Alcohol intake: never Patient Tobacco Use Status: Current everyday Tobacco user Tobacco use type: Cigarette Cigarettes Per Day: 10 e-Cigarette/Vaping Use: Never Used Second Hand Smoke Exposure: Yes service: No Current occupational status: employed Current occupation: [employer] Current occupational exposures/hazards: No Sexual orientation: Straight/Heterosexual Gender identity: Female Cognitive needs: No Hearing needs: No Vision needs: No Questionnaire Thrive Questionnaire Date Thrive assessed: 10/28/22 AUDIT C Alcohol Use Questionnaire (AUDIT-C) 2. How many drinks containing alcohol do you have on a typical day when you are drinking?: 1 or 2 3. How often do you have six or more drinks on one occasion?: Never Total Score: 0 MAURICE-7 AMB Questionnaire MAURICE-7 Date MAURICE - 7 assessed: 10/28/22 Source: Developed by Drs. Darek Hu, Luciana Dotson, Shelton Ferris and colleagues, with an educational ayaz from [employer]. Physical exam (Primary Care) Tobacco/Smoking Status: Tobacco use Status Tobacco use date assessed 04/19/23 12/11/24 08:05 Patient Tobacco Use Status Current everyday Tobacco 12/11/24 08:05 Tobacco use type Cigarette 12/11/24 08:05 e-Cigarette/Vaping Use Never Used 12/11/24 08:05 Thrive Assessment: Date of Thrive Assessment Date Thrive assessed 10/28/22 12/11/24 08:05 Coding Level of Care Code Est Pt Prev Care 40-64y(77600) Diagnoses Pre-op evaluation Z01.818 Assessment & Plan Assessment & Plan (1) Pre-op evaluation: Code(s): Z01.818 - Encounter for other preprocedural examination Category: Medical Plan .
--- OUTSIDE RECORDS SUMMARY | 2024-12-11 08:12 | XMS_ITS | Patient Health Record ---
Author Organization [facility] Address [address] [place] [address] Care Team Providers Care Coder Operator Name Role Phone Raoul Smith Primary Care Provider Unav ailable Buckrita Nati Unavailable [phone] Allergies No Known Allergies Reason For Referral [...] Osteoarthritis of midtarsal joint of left foot (2547498317463630 ) Osteoarthritis of midtarsal joint of left foot (M19.072) Active confirmed Problem Osteoarthritis of midtarsal joint of right foot (2197982492908555 ) Osteoarthritis of midtarsal joint of right foot (M19.071) Active confirmed Plan Of Treatment Pending Test Test Name [...] Coverage End Date Blue Benefits [address] [address] [place] [address] [id number] Yeimi Sr Self - patient is the insured Medical (General) History Medical History History ICD Code covid-19 Depression Gout Headaches/Migraines Surgical History Surgery Date(Month/Year) appendectomy tonsillectomy amputation non-specific section 02/08/81-06/02/89
== END 2024-12-11 08:27 | disposition home or self-care (01) ==
LOC: HO.HMCC 08:07
PROVIDERS: PCP Nurse Practitioner Family; Visit Provider Nurse Practitioner Family
DX: Z01.818 Encounter for other preprocedural examination (principal)

== ENCOUNTER → 2024-12-11 08:07 | Outpatient (BNVA) | payer OTHER, SELFPAY | PROVIDERS: PCP Nurse Practitioner Family; Visit Provider Nurse Practitioner Family ==

== ENCOUNTER 2024-12-18 06:20 | Day surgery (SDC) | payer OTHER, SELFPAY ==
--- OUTSIDE RECORDS SUMMARY | 2024-11-22 08:23 | XMS_ITS | Patient Health Record ---
Author Organization [facility] Address [address] [place] [address] Care Team Providers Care Coin Machine Collector Name Role Phone Raoul Smith Primary Care Provider Unav ailable Buckrita Nati Unavailable [phone] Allergies No Known Allergies Reason For Referral No Information Medications Medication SIG (Take, Route, Fr equency, Duration) Notes Start Date End Date Status Medrol hansel 4mg as directed orally a s directed for 6 days 10/14/2023 Active Social History Tobacco Use: Social History Observation Description Date Details (start date - stop date) Current Smoker NA - NA Tobacco Use/Smoking Question Answer Notes Are you a: current smoker How often do you smoke cigarettes? every day How many cigarettes a day do you smoke? 11-20 How soon after you wake up d o you smoke your first cigarette? within 5 minutes Are you interested in quitting? Not ready to jacey t Additional Findings: Tobacco User Modera te cigarette smoker (10-19 cigs/day) Alcohol Screen Question Answer Notes Did you have a drink contain ing alcohol in the past year? Yes How often did you have a dri nk containing alcohol in the past year? Monthly or less (1 point) How often did you have 6 or more drinks on one occasion in the past year? Less than monthly (1 point) Points 2 Interpretation Negative Tobacco use other than smoking: Question Answer Notes Are you an other tobacco user? No Problems Problem Type SNOMED Code ICD Code Onset Dates Problem Status W/U Status Risk Notes Problem Osteoarthritis of midtarsal joint of left foot (3116864540217418 ) Osteoarthritis of midtarsal joint of left foot (M19.072) Active confirmed Problem Osteoarthritis of midtarsal joint of right foot (7804999770136317 ) Osteoarthritis of midtarsal joint of right foot (M19.071) Active confirmed Encounters Encounter Location Date Provider Diagnosis [facility] [place] [address] [address] 12/02/2023 Nati Samuel Plan Of Treatment Pending Test Test Name Order Date *Uric Acid, Serum 10/13/2023 *CBC With Differential/Platelet 10/13/19 Rheumatoid Arthritis Factor 10/13/2023 C-Reactive Protein, Quant 10/13/2023 JESSICA Comprehensive Panel 10/13/2023 Basic Metabolic Panel (8) 10/13/2023 ESR 10/13/2023 X ray : Foot, left 3V 10/13/2023 X ray : Foot, right 3V 10/13/2023 Insurance Providers Payer Name Payer Address Payer Phone Subscriber Number Group Number Insured Name Patient Relationship to Insured Coverage Start Date Coverage End Date [employer] Benefits [address] [address] [place] [address] [id number] Yeimi Sr Self - patient is the insured Medical (General) History Medical History History ICD Code covid-19 Depression Gout Headaches/Migraines Surgical History Surgery Date(Month/Year) appendectomy tonsillectomy amputation non-specific section 02/08/81-06/02/89
--- OUTSIDE RECORDS SUMMARY | 2024-11-22 08:24 | XMS_ITS ---
Author Organization [facility] Address [address] [place] [address] Care Team Providers Care Manager Fashion Name Role Phone Raoul Smith Primary Care Provider Unav ailable Nati Samuel [phone] Encounters Encounter Location Date Provider Diagnosis [facility] [address] [place] [address] 12/03/2023 Nati Samuel Plan Of Treatment No Information Progress Notes * Fredy SRB:1965 (59 yo F)Acc No.[id number]:12/03/2023 Progress Notes Patient:Yeimi MONTES Provider:?Nati Samuel DPM :1965???Age:58 Y???Sex:Female D ate:12/03/2023 Address:[address] [place], [place] [id number] Pcp:JOSE ROBERTO López Subjective: * Chief Complaints: * ??? * Medical History:? Objective: * Vitals:? Assessment: Plan: * Treatment: * Images: * The named appointment provid er may or may not be the originator of this progress note, and it is not deemed complete until electronically signed by the appointment provider. Sign off status: Pending * Provider:?Nati Samuel DPM Date:? Generated for Printi ng/Faflorentinog/eTransmitting on:?11/22/2024 08:24 AM EDT
--- OUTSIDE RECORDS SUMMARY | 2024-11-22 08:24 | XMS_ITS ---
Author Organization [facility] Address [address] [place] [address] Care Team Providers Care Stripper Color Name Role Phone Raoul Smith Primary Care Provider Unav ailable Nati Samuel [phone] Encounters Encounter Location Date Provider Diagnosis [facility] [address] [place] [address] 11/03/2023 Nati Samuel Plan Of Treatment No Information Progress Notes * Fredy SRB:1965 (59 yo F)Acc No.[id number]:11/03/2023 Progress Notes Patient:Yeimi MONTES Provider:?Nati Samuel DPM :1965???Age:58 Y???Sex:Female D ate:11/03/2023 Address:[address] [place], [place] [id number] Pcp:JOSE ROBERTO López Subjective: * Chief Complaints: [...]
--- OUTSIDE RECORDS SUMMARY | 2024-11-22 08:25 | XMS_ITS ---
Author Organization [facility] Address [address] [place] [address] Care Team Providers Care Surgical Resident Name Role Phone Raoul Smith Primary Care Provider Unav ailable Nati Samuel [phone] REASON FOR VISIT 12/03/23 appt Encounters Encounter Location Date Provider [facility] [address] [place] [id number] 12/02/2023 Nati Samuel Plan Of Treatment No Information Progress Notes * Fredy SRB:1965 (58 yo F)Acc No.[id number]:12/02/2023 Patient:?Christine Sra :1965???Age:58 Y???Sex:Female Address:[address] [place] [address], [address] * true * Date:? Generated for Printi ng/Faflorentinog/eTransmitting on:?11/22/2024 08:24 AM EDT
[2024-12-12 09:09] VITALS: BMI 27.5
--- NOTE | 2024-12-15 09:26 | HO.ANESPROP2 ---
HPI - Anesthesia Eval Consult details Narrative: 59yo F for Right Cataract Extraction IOL Insertion No previous cataract on record PMFSH Active Problems Active Problems: All Active Problems Tubular adenoma of colon (Acute) Bright red rectal bleeding (Acute) Microscopic hematuria (Acute) Personal history of colonic polyps (Acute) Depression (Acute) Family history of breast cancer (Acute) Post-menopausal (Acute) Family history of colon cancer (Acute) Systolic murmur (Acute) Nicotine dependence, cigarettes, uncomplicated (Acute) Past Medical History Medical History (Updated 12/12/24 @ 09:21 by Amairani Luo PA-C) Systolic murmur Depression Tubular adenoma of colon Family history of colon cancer Kienbock's disease Nicotine dependence, cigarettes, uncomplicated Family History Family history of problems with anesthesia: No Surgical History Surgical History (Updated 12/12/24 @ 09:21 by Amairani Luo PA-C) History of colonoscopy Hx of tubal ligation History of excision of mass History of surgery on right wrist History of tonsillectomy History of appendectomy History of History of Problems with Anesthesia: No Social History Social History Household Members: Spouse Housing: House Are you a primary physician primary care sports medicine to a significant other at home: No Do you presently have visiting nurse or other home services: No Alcohol intake: never Patient Tobacco Use Status: Current everyday Tobacco user Tobacco use type: Cigarette Cigarette Packs Per Day: 1 Cigarettes Per Day: 20.0 Years Smoked: 50 e-Cigarette/Vaping Use: Never Used Second Hand Smoke Exposure: Yes Use of substances other than those prescribed or required for medical reasons: No Have you been hit, kicked, punched, or otherwise hurt by someone within the past year? If so, by whom?: No Spiritual Healthcare Practices: no Yazidi Healthcare Practices: no Cultural Healthcare Practices: no Are you DNR?: No Advance Directives Information Provided: Yes (as above noted) Advance Directives on File: No FDLMP: n/a service: No Current occupational status: employed Current occupation: [employer] Current occupational exposures/hazards: No Sexual orientation: Straight/Heterosexual Gender identity: Female Cognitive needs: No Hearing needs: No Vision needs: No Meds Allergies Allergy/AdvReac Type Severity Reaction Status Date / Time No Known Allergies Allergy Verified 07/18/24 11:52 Home Medications ?Medication ?Instructions ?Recorded ?Confirmed ?Last Taken ?Type No Known Home Meds 12/12/24 12/12/24 Unknown History Exam Height,Weight and Vital Signs: Height 5 ft 4 in Weight 72.575 kg Assessment and Plan Assessment Anesthesia Assessment: Chart Reviewed Final Anesthetic Review Family History of Problems with Anesthesia: No History of Problems with Anesthesia: No
[2024-12-18] MEDS: Cyclopentolate 1 % Ophth Sol 2 ML DRPBTL 1 DROP EYE-RIGHT ×3 (06:41→06:51)
[2024-12-18] MEDS: Lactated Ringers 500 ML 50 ML IV (06:41)
[2024-12-18] MEDS: Tetracaine HCl/PF 0.5% Oph Sol 4 ML DROPS 1 DROP EYE-RIGHT (06:41)
[2024-12-18] MEDS: Ketorolac Tromethamine 0.5% Op 5 ML DROPS 1 DROP EYE-RIGHT ×3 (06:41→06:51)
[2024-12-18] MEDS: Phenylephrine HCL 2.5% Oph SoL 2 ML BOTTLE 1 DROP EYE-RIGHT ×3 (06:42→06:51)
[2024-12-18] MEDS: Tropicamide 1 % Ophth Sol 3 ML BTL 1 DROP EYE-RIGHT ×3 (06:42→06:50)
[2024-12-18 06:54] VITALS: BP 136/87; PULSE 91; RESP 18; TEMP 36.8; O2SAT 98
--- NOTE | 2024-12-18 07:06 | P.PCNO_ITS ---
Ophthalmology Procedure Procedure Date of Service: 12/18/24 Ophthalmology Viscoelastic: Healon Duet Dual Pack Pro Ophthalmology Lenses: IOL Acrysof MP - MA60AC (255) Procedure Notes: PREOPERATIVE DIAGNOSIS: Decreased visual acuity right eye secondary to cataract POSTOPERATIVE DIAGNOSIS: Same PROCEDURE: Right cataract extraction with intraocular lens insertion SURGEON: Jose Martin Trujillo M.D. ANESTHESIA: Topical/MAC ESTIMATED BLOOD LOSS: None COMPLICATIONS: None After obtaining informed consent, the patient was brought to the operating room suite and placed in the supine position. After adequate sedation per anesthesia, topical drops of Tetracaine were given to the right eye. The eye was then prepped and draped in the usual sterile fashion. The operating room microscope was then positioned over the operative eye and a lid speculum placed. A paracentesis was created. Viscoelastic was then instilled into the anterior chamber. A three plane incision was then created temporally, utilizing a 2.85 mm keratome. Capsulotomy forceps were then utilized to create a circular tear capsulotomy. Hydrodissection and hydrodelineation were carried out until adequate mobilization of the nucleus occurred. Phacoemulsification was then utilized to remove the dense central nuc leus followed by removal of the cortical material utilizing the automated aspiration irrigation unit. Viscoelastic was instilled into the posterior capsular bag followed by placement of a posterior chamber intraocular lens without difficulty. The residual Viscoelastic was then removed utilizing the automated IA machine. The wound was checked and found to be watertight. The patient tolerated the procedure well and the lid speculum was removed. Intracameral injection of Vigamox 0.1 mL followed by a subtenon injection of Kenalog-40 0.2 mL were administered. The patient will be seen in the a.m.
--- NOTE | 2024-12-18 07:06 | MHC.SHP ---
Pre-Procedural Eval Section A - 24 Hr Update-Section A only Date of Service: 12/18/24 The patient is an INPATIENT: No Changes since office visit: No Cold of Flu in the past 2 weeks, No New Medical Problems, No Changes in Medication and No Patient answered all questions The patient has been examined within 24 hours of the surgical procedure. The History & Physical has been completed within 30 days and I have reviewed it.: Yes Section B - Complete if H&P > 30 days Chief Complaint: Age-related nuclear cataract, right eye Allergies: Allergies Allergy/AdvReac Type Severity Reaction Status Date / Time No Known Allergies Allergy Verified 12/18/24 06:57 Plan Diagnosis/Plan: Unchanged I have reviewed the history and physical and performed a pertinent physical examination on my patient. No changes have occurred unless specified. Time Spent With Patient Time: Total time managing care of this patient today ____ minutes.
--- NOTE | 2024-12-18 07:32 | P.CONAN_ITS ---
[facility] Active Problems Active Problems: All Active Problems Tubular adenoma of colon (Acute) Bright red rectal bleeding (Acute) Microscopic hematuria (Acute) Personal history of colonic polyps (Acute) Depression (Acute) Family history of breast cancer (Acute) Post-menopausal (Acute) Family history of colon cancer (Acute) Systolic murmur (Acute) Nicotine dependence, cigarettes, uncomplicated (Acute) Past Medical History Medical History Systolic murmur Depression Tubular adenoma of colon Family history of colon cancer Kienbock's disease Nicotine dependence, cigarettes, uncomplicated Functional capacity: independent ambulation Patient : No Family History Family history of problems with anesthesia: No Surgical History Surgical History History of colonoscopy Hx of tubal ligation History of excision of mass History of surgery on right wrist History of tonsillectomy History of appendectomy History of History of Problems with Anesthesia: No Social History Social History Household Members: Spouse Housing: House Are you a primary professional healthcare representative to a significant other at home: No Do you presently have visiting nurse or other home services: No Alcohol intake: never Patient Tobacco Use Status: Current everyday Tobacco user Tobacco use type: Cigarette Cigarette Packs Per Day: 1 Cigarettes Per Day: 20.0 Years Smoked: 50 e-Cigarette/Vaping Use: Never Used Second Hand Smoke Exposure: Yes Use of substances other than those prescribed or required for medical reasons: No Have you been hit, kicked, punched, or otherwise hurt by someone within the past year? If so, by whom?: No Spiritual Healthcare Practices: no Religion Healthcare Practices: no Cultural Healthcare Practices: no Are you DNR?: No Advance Directives Information Provided: Yes (as above noted) Advance Directives on File: No FDLMP: n/a service: No Current occupational status: employed Current occupation: [employer] Current occupational exposures/hazards: No Sexual orientation: Straight/Heterosexual Gender identity: Female Cognitive needs: No Hearing needs: No Vision needs: No Meds Allergies Allergy/AdvReac Type Severity Reaction Status Date / Time No Known Allergies Allergy Verified 12/18/24 06:57 Active Medications: Current Medications Albuterol Sulfate (Albuterol Sulfate (0.083%) 2.5 Mg/3 Ml Vial.Neb) 2.5 mg INHALE ONCE PRN PRN Reason: Shortness of Breath/Wheezing Lactated Ringer's (Lr) 500 mls @ 50 mls/hr IV .Q10H DANNY Stop: 12/18/24 16:29 Last Admin: 12/18/24 06:41 Dose: 50 mls/hr Povidone Iodine (Povidone Iodine 5 % Ophth Soln 30 Ml Bottle) 1 appl EYE-RIGHT PREOP PRN PRN Reason: Pre-Op Surgical Implant Prophy Home Medications ?Medication ?Instructions ?Recorded ?Confirmed ?Last Taken ?Type No Known Home Meds 12/12/24 12/12/24 Unknown History Exam Height,Weight and Vital Signs: Height 5 ft 4 in Weight 72.575 kg Last Vital Signs Temp 98.2 F 12/18/24 06:54 Pulse 91 12/18/24 06:54 Resp 18 12/18/24 06:54 BP 136/87 12/18/24 06:54 Pulse Ox 98 12/18/24 06:54 O2 Del Method Room Air 12/18/24 06:54 Airway Mallampati Class: II TM Dist: >3cm Neck ROM: Full Denture: Upper and Lower Heart: RRR Lungs: CTA Assessment and Plan Assessment Anesthesia Assessment: Anesthesia Plan Discussed and Smoking Cess. Discussed Final Anesthetic Review Family History of Problems with Anesthesia: No History of Problems with Anesthesia: No NPO: Yes ASA Class: II Final Preanesthetic Review: Meds/Allgs Chart Reviewed, Consent Obtained/Reviewed and Anes Risks/Benef Reviewed Patient Risk: Low Procedure Risk: Low Anesthetic Plan Anesthetic Plan: MAC: Disposition: Standard PACU
[2024-12-18 07:53] VITALS: BP 161/98; PULSE 84; RESP 20; TEMP 36.1; O2SAT 95
--- NOTE | 2024-12-18 09:12 | HO.POSTANES ---
Post Anesthesia Evaluation Post Anesthesia Evaluation Date of Service: 12/18/24 Vital Signs: Vital Signs Temp Pulse Resp BP Pulse Ox O2 Del Method 12/18/24 07:53 97.0 F 84 20 161/98 H 95 Room Air 12/18/24 06:54 98.2 F 91 18 136/87 98 Room Air Anesthesia: Monitored Mental Status: Awake Pain Control: Satisfactory Nausea/Vomiting: None Hydration: Adequate Anesthesia-Related Issues: No Anes. Related Issues
== END 2024-12-18 08:24 | disposition home or self-care (01) ==
PROVIDERS: PCP Nurse Practitioner Family; Visit Provider Ophthalmology
PROC: (CPT 66985; principal; 2024-12-18 07:30)
DX: H25.11 Age-related nuclear cataract, right eye (principal); H54.7 Unspecified visual loss; H43.393 Other vitreous opacities, bilateral; H18.413 Arcus senilis, bilateral; H11.153 Pinguecula, bilateral; H35.09 Other intraretinal microvascular abnormalities; Z98.890 Other specified postprocedural states; F17.210 Nicotine dependence, cigarettes, uncomplicated
CPT/HCPCS: 66984; J2250; J3301; V2630

== ENCOUNTER 2025-01-01 06:11 | Day surgery (SDC) | payer OTHER, SELFPAY ==
[2024-12-12 09:11] VITALS: BMI 27.5
--- OUTSIDE RECORDS SUMMARY | 2024-12-25 16:41 | XMS_ITS | Patient Health Record ---
Author Organization [facility] Address [address] [place] [address] Care Team Providers Care Occupational Nurse Name Role Phone Raoul Smith Primary Care Provider Unav ailable Buckrita Nati Unavailable [phone] Allergies No Known Allergies Reason For Referral [...] Osteoarthritis of midtarsal joint of left foot (7369409617881692 ) Osteoarthritis of midtarsal joint of left foot (M19.072) Active confirmed Problem Osteoarthritis of midtarsal joint of right foot (7465409224961985 ) Osteoarthritis of midtarsal joint of right [...] Coverage End Date Blue Benefits [address] [address] [place] [address] [id number] Yeimi Sr Self - patient is the insured Medical (General) History Medical History History ICD Code covid-19 Depression Gout Headaches/Migraines Surgical History Surgery Date(Month/Year) appendectomy tonsillectomy amputation non-specific section 02/08/81-06/02/89
[2025-01-01 06:24] VITALS: BP 169/64; PULSE 86; RESP 16; TEMP 36.1; O2SAT 95
--- NOTE | 2025-01-01 07:13 | P.CONAN_ITS ---
[facility] Active Problems Active Problems: All Active Problems (Updated 12/12/24 @ 09:21 by Amairani Luo PA-C) Tubular adenoma of colon (Acute) Bright red rectal bleeding (Acute) Microscopic hematuria (Acute) Personal history of colonic polyps (Acute) Depression (Acute) Family history of breast cancer (Acute) Post-menopausal (Acute) Family history of colon cancer (Acute) Systolic murmur (Acute) Nicotine dependence, cigarettes, uncomplicated (Acute) Past Medical History Medical History Systolic murmur Depression Tubular adenoma of colon Family history of colon cancer Kienbock's disease Nicotine dependence, cigarettes, uncomplicated Family History Family history of problems with anesthesia: No Surgical History Surgical History History of colonoscopy Hx of tubal ligation History of excision of mass History of surgery on right wrist History of tonsillectomy History of appendectomy History of History of Problems with Anesthesia: No Social History Social History Household Members: Spouse Housing: House Are you a primary intensive care nurse to a significant other at home: No Do you presently have visiting nurse or other home services: No Alcohol intake: never Patient Tobacco Use Status: Current everyday Tobacco user Tobacco use type: Cigarette Cigarette Packs Per Day: 1 Cigarettes Per Day: 20.0 Years Smoked: 50 e-Cigarette/Vaping Use: Never Used Second Hand Smoke Exposure: Yes Use of substances other than those prescribed or required for medical reasons: No Have you been hit, kicked, punched, or otherwise hurt by someone within the past year? If so, by whom?: No Spiritual Healthcare Practices: no [facility] Practices: no Cultural Healthcare Practices: no Are you DNR?: No Advance Directives Information Provided: Yes (as above noted) Advance Directives on File: No FDLMP: n/a Poor oral hygiene: No service: No Current occupational status: employed Current occupation: [employer] Current occupational exposures/hazards: No Sexual orientation: Straight/Heterosexual Gender identity: Female Cognitive needs: No Hearing needs: No Vision needs: No Meds Allergies Allergy/AdvReac Type Severity Reaction Status Date / Time No Known Allergies Allergy Verified 12/18/24 06:57 Active Medications: Current Medications Naloxone HCl (Naloxone Hcl 0.4 Mg/Ml Vial) 0.04 mg IVPUSH Q5M PRN PRN Reason: Excessive sedation or RR < 8 Povidone Iodine (Povidone Iodine 5 % Ophth Soln 30 Ml Bottle) 1 appl EYE-LEFT PREOP PRN PRN Reason: Pre-Op Surgical Implant Prophy Home Medications ?Medication ?Instructions ?Recorded ?Confirmed ?Last Taken ?Type No Known Home Meds 12/12/24 12/12/24 Un known History Exam Height,Weight and Vital Signs: Height 5 ft 4 in Weight 72.575 kg Last Vital Signs Temp 97.0 F 01/01/25 06:24 Pulse 86 01/01/25 06:24 Resp 16 01/01/25 06:24 BP 169/64 H 01/01/25 06:24 Pulse Ox 95 01/01/25 06:24 O2 Del Method Room Air 01/01/25 06:24 Airway Mallampati Class: II TM Dist: >3cm Neck ROM: Full Denture: Upper and Lower Heart: rrr Lungs: cta Assessment and Plan Assessment Anesthesia Assessment: Anesthesia Plan Discussed and Chart Reviewed Final Anesthetic Review Family History of Problems with Anesthesia: No History of Problems with Anesthesia: No NPO: Yes ASA Class: III Final Preanesthetic Review: No Changes in Pt Med Stat, Meds/Allgs Chart Reviewed and Consent Obtained/Reviewed Patient Risk: Low Procedure Risk: Low Anesthetic Plan Anesthetic Plan: MAC: Disposition: Standard PACU
--- NOTE | 2025-01-01 07:31 | MHC.SHP ---
Pre-Procedural Eval Section A - 24 Hr Update-Section A only Date of Service: 01/01/25 The patient is an INPATIENT: No Changes since office visit: No Cold of Flu in the past 2 weeks, No New Medical Problems, No Changes in Medication and No Patient answered all questions The patient has been examined within 24 hours of the surgical procedure. The History & Physical has been completed within 30 days and I have reviewed it.: Yes Section B - Complete if H&P > 30 days Chief Complaint: Age-related nuclear cataract, left eye Allergies: Allergies Allergy/AdvReac Type Severity Reaction Status Date / Time No Known Allergies Allergy Verified 12/18/24 06:57 Plan Diagnosis/Plan: Unchanged I have reviewed the history and physical and performed a pertinent physical examination on my patient. No changes have occurred unless specified. Time Spent With Patient Time: Total time managing care of this patient today ____ minutes.
--- NOTE | 2025-01-01 07:31 | HO.PNOPHT ---
Ophthalmology Procedure Procedure Date of Service: 01/01/25 Ophthalmology Viscoelastic: Healon Duet Dual Pack Pro Ophthalmology Lenses: IOL Acrysof MP - MA60AC (25) Procedure Notes: PREOPERATIVE DIAGNOSIS: Decreased visual acuity left eye secondary to cataract POSTOPERATIVE DIAGNOSIS: Same PROCEDURE: Left cataract extraction with intraocular lens insertion SURGEON: Jose Martin Trujillo M.D. ANESTHESIA: Topical/MAC ESTIMATED BLOOD LOSS: None COMPLICATIONS: None After obtaining informed consent, the patient was brought to the operation room suite and placed in the supine position. After adequate sedation per anesthesia, topical drops of Tetracaine were given to the left eye. The eye was then prepped and draped in the usual sterile fashion. The operating room microscope was then positioned over the operative eye and a lid speculum placed. A paracentesis was created. Viscoelastic was then instilled into the anterior chamber. A three plane incision was then created temporally, utilizing a 2.85 mm keratome. Capsulotomy forceps were then utilized to create a circular tear capsulotomy. Hydrodissection and hydrodelineation were carried out until adequate mobilization of the nucleus occurred. Phacoemulsification was then utilized to remove the dense central nucleus followed by removal of the cortical material utilizing the automated aspiration irrigation unit. Viscoat elastic was instilled into the posterior capsular bag followed by placement of a posterior chamber intraocular lens without difficulty. The residual Viscoat elastic was then removed utilizing the automated IA machine. The wound was check and found to be watertight. The patient tolerated the procedure well and the lid speculum was removed. Intracameral injection of Vigamox 0.1 mL followed by a subtenon injection of Kenalog-40 0.2 mL were administered. The patient will be seen in the a.m.
[2025-01-01 07:57] VITALS: BP 144/77; PULSE 72; RESP 16; TEMP 36.3; O2SAT 99
== END 2025-01-01 08:04 | disposition home or self-care (01) ==
PROVIDERS: PCP Nurse Practitioner Family; Visit Provider Ophthalmology
PROC: (CPT 66985; principal; 2025-01-01 07:30)
DX: H25.12 Age-related nuclear cataract, left eye (principal); H54.7 Unspecified visual loss; H43.393 Other vitreous opacities, bilateral; H18.413 Arcus senilis, bilateral; H11.153 Pinguecula, bilateral; H35.09 Other intraretinal microvascular abnormalities; R01.1 Cardiac murmur, unspecified; M92.219 Osteochondrosis (juvenile) of carpal lunate [Kienbock], unspecified hand; Z98.890 Other specified postprocedural states; F17.210 Nicotine dependence, cigarettes, uncomplicated
CPT/HCPCS: 66984; J2250; J3301; V2632

== ENCOUNTER 2025-03-05 10:24 | Outpatient (AMB) | payer OTHER, SELFPAY ==
--- NOTE | 2025-03-05 10:26 | MHC.PC.OV ---
Vital Signs 03/05/25 10:27 03/05/25 11:10 Weight 168 lb BP 158/78 H 140/80 H Blood Pressure Location Rt brachial Position Sitting Respiration 18 Pulse 74 Temp 99.0 F Pulse Oximetry (%) 95 Intake Visit Reasons: follow up Gun Fertilizer Required: No Accompanied by: Self / Same As Patient Allergies No Known Allergies Allergy (Verified 03/05/25 11:24) Medication List - Last Reconciled 03/05/25 [facility]ital[facility] 10 mg PO DAILY 30 days Tobacco use date assessed: 03/05/25 Dental Screening Dental Screen Date: 03/05/25 Did you have a dental visit in the last 12 months?: No Did you have a dental problem in the last 6 months where you did not have access to dental care?: No Was dental information given to patient?: Patient declined (Dentures) HPI follow up HPI Details History of Present Illness The patient is a 59-year-old female presenting for a physical examination and management of depression. The patient reports an increase in depressive symptoms recently, although she denies any suicidal ideation or homicidal thoughts. Her brothers have been on Celexa with positive outcomes, prompting the decision to start her on a low dose of Celexa at 10 mg. She does not wish to engage with a therapist at this time. The patient has a history of hemorrhoids, with moderate hemorrhoids noted on her recent colon screening. She reports experiencing rectal bleeding twice, once in November and once a few weeks ago, but denies any pain with defecation or changes in bowel habits. She is a smoker and is due for a low-dose CT scan next month as part of her preventative care. HTN: will have her take her BP at home and send me values vaccination schedule went over with pt, may get at pharmacy Health Maintenance - Colon cancer screening is up to date, next due in November 2025 (will refer to GI provider for blood in stool) - Mammogram is up to date - Low-dose CT scan scheduled for next month Social History - Tobacco use: Patient smokes Review of Systems - Cardiovascular: Denies chest pain - Respiratory: Denies increased dyspnea - Gastrointestinal: Denies abdominal pain, reports rectal bleeding twice, denies pain with defecation, denies change in bowel habits - Genitourinary: Denies urinary problems - Psychiatric: Reports increased depression, denies suicidal ideation or homicidal thoughts Physical Exam General: Cooperative, healthy appearing, comfortable, no acute distress and well developed Orientation: Patient oriented x3 Limitations: No limitations Head: Normal to inspection Ears: Hearing grossly normal bilaterally Nose: Normal external nose present Face and sinus: Normal facial exam Eyes: Appearance normal, both eyes and all related structures Neck: Normal visual inspection and Yes full ROM Respiratory: Normal respiratory effort and able to speak in complete sentences. Clear to auscultation bilaterally Cardiovascular: Regular rate and rhythm. Normal S1 and S2, faint carotid bruits noted bilat GI: Normal to inspection. Soft to palpation and nontender. Moderate hemorrhoids noted on colon screen Skin: No rashes or lesions noted Neuro: Patient oriented x3 Extremities: Normal to inspection Results - Colonoscopy: Moderate hemorrhoids noted Plan The patient will be started on Celexa at a low dose of 10 mg to address her increased depressive symptoms, with a follow-up planned in two months to assess her response to the medication. She will continue to monitor her hemorrhoids, with no immediate intervention required unless symptoms worsen. Preventative care measures include a scheduled low-dose CT scan next month due to her smoking history, and her colon cancer screening is up to date with the next one due in November 2025. Discussion Notes I discussed with the patient the initiation of Celexa at 10 mg to help manage her increased depressive symptoms, noting the positive outcomes her brothers have experienced with this medication. We also reviewed her preventative care schedule, including the upcoming low-dose CT scan and the status of her colon cancer screening. Patient Instructions - Start taking Celexa 10 mg daily as prescribed. - Monitor for any changes in hemorrhoid symptoms and report if they worsen. (referring to GI) - Attend the scheduled low-dose CT scan next month. - Follow up in two months to assess response to Celexa. - send BPs via portal so i can see them -US of carotids [facility] Medical History Systolic murmur Depression Tubular adenoma of colon Family history of colon cancer Kienbock's disease Nicotine dependence, cigarettes, uncomplicated Surgical History History of cataract surgery History of colonoscopy Hx of tubal ligation History of excision of mass History of surgery on right wrist History of tonsillectomy History of appendectomy History of Social History Household Members: Spouse Housing: House Are you a primary pediatric critical care nurse to a significant other at home: No Do you presently have visiting nurse or other home services: No Alcohol intake: never Patient Tobacco Use Status: Current everyday Tobacco user Tobacco use type: Cigarette Cigarette Packs Per Day: 1 Cigarettes Per Day: 20.0 Years Smoked: 50 e-Cigarette/Vaping Use: Never Used Second Hand Smoke Exposure: Yes service: No Current occupational status: employed Current occupation: [employer] [employer] Current occupational exposures/hazards: No Sexual orientation: Straight/Heterosexual Gender identity: Female Cognitive needs: No Hearing needs: No Vision needs: No Questionnaire PHQ-9 Over the last 2 weeks, how often have you been bothered by any of the following problems? 1. Little interest or pleasure in doing things: more than half the days 2. Feeling down, depressed, or hopeless: more than half the days 3. Trouble falling or staying asleep, or sleeping too much: more than half the days 4. Feeling tired or having little energy: more than half the days 5. Poor appetite or overeating: not at all 6. Feeling bad about yourself - or that you are a failure or have let yourself or your family down: more than half the days 7. Trouble concentrating on things, such as reading the newspaper or watching television: several days 8. Moving or speaking so slowly that other people could have noticed. Or the opposite - being so fidgety or restless that you have been moving around a lot more than usual: not at all 9. Thoughts that you would be better off or of hurting yourself in some way: not at all Total score: 11 Depression Screening Interpretation: Positive (denies any si or hi) Depression Screening Follow-up: Existing condition and New Medication prescribed Depression Screening Done: Yes 41445 - PHQ-9 Billing: Yes Source: Developed by Drs. Darek Hu, Luciana Dotson, Shelton Ferris and colleagues, with an educational ayaz from [employer]. Thrive Questionnaire Date Thrive assessed: 03/02/25 I am a: Patient What is your living situation today?: I have a steady place to live Within the past 12 months, did the food you bought not last and you didn't have the money to get more?: Never true Within the past 12 months, did you worry whether your food would run out before you got money to buy more?: Never true Do you have trouble paying for medicines?: No Do you have trouble getting transportation to medical appointments?: No Do you have trouble paying your heating and electricity bill?: No Do you have trouble taking care of your child, family member or friend?: No Do you have trouble with day-to-day activities such as bathing, preparing meals, shopping, managing finances, etc.?: No Are you currently unemployed and looking for a job?: No Are you interested in more education?: No Please select the resources that you would like help with: None Currently or been in a relationship where the following occur: No concerns reported THRIVE Score: 0 AUDIT C Alcohol Use Questionnaire (AUDIT-C) 1. How often do you have a drink containing alcohol?: Monthly or less Total Score: 1 Score Reviewed/Action Taken: Yes MAURICE-7 AMB Questionnaire MAURICE-7 Date MAURICE - 7 assessed: 03/05/25 Feeling nervous, anxious, or on edge: 2 = More than half the days Not being able to stop or control worryin = More than half the days Worrying too much about different things: 2 = More than half the days Trouble relaxin = Nearly every day Being so restless that it is hard to sit still: 1 = Several days Becoming easily annoyed or irritable: 3 = Nearly every day Feeling afraid as if something awful might happen: 0 = Not at all Total MAURICE-7 score (0-4 normal; 5-9 mild; 10-14 moderate; 15-21 severe): 13 Source: Developed by Drs. Darek Hu, Luciana Dotson, Shelton Ferris and colleagues, with an educational ayaz from [employer]. MAURICE-7 Assessment Billing MAURICE-7 Assessment Tool: MAURICE-7 Assessment 37045 Physical exam (Primary Care) Vital Signs: Last Vital Signs Temp 99.0 F 03/05/25 10:27 Pulse 74 03/05/25 10:27 Resp 18 03/05/25 10:27 BP 158/78 H 03/05/25 10:27 Pulse Ox 95 03/05/25 10:27 Tobacco/Smoking Status: Tobacco use Status Tobacco use date assessed 03/05/25 03/05/25 10:33 Patient Tobacco Use Status Current everyday Tobacco 03/05/25 10:33 Tobacco use type Cigarette 03/05/25 10:33 e-Cigarette/Vaping Use Never Used 03/05/25 10:33 PHQ-9: PHQ-9 Score PHQ-9: Total score 11 03/05/25 11:00 Depression Screening Interpretation: Positive (denies any si or hi) Depression Screening Follow-up: Existing condition and New Medication prescribed Thrive Assessment: Date of Thrive Assessment Date Thrive assessed 03/02/25 03/05/25 10:33 Currently or been in a relationship where the following occur: No concerns reported Coding Level of Care Code Est Pt Level 3 (97720) Est Pt Prev Care 40-64y(00317) Diagnoses Encounter for routine adult physical exam with abnormal findings Z00.01 Vitamin D deficiency E55.9 Post-menopausal Z78.0 Depression F32.A Family history of colon cancer Z80.0 Bright red rectal bleeding K62.5 Bilateral carotid bruits R09.89 HTN (hypertension) I10 Additional Codes MAURICE-7 Assessment Billing - MAURICE-7 Assessment Tool: MAURICE-7 Assessment 05316 ([id number]) PHQ-9 - 40752 - PHQ-9 Billing: Yes ([id number]) Assessment & Plan Assessment & Plan (1) Encounter for routine adult physical exam with abnormal findings: Code(s): Z00.01 - Encounter for general adult medical examination with abnormal findings Category: Medical (2) Vitamin D deficiency: Code(s): E55.9 - Vitamin D deficiency, unspecified Category: Medical (3) Post-menopausal: Code(s): Z78.0 - Asymptomatic menopausal state Category: Medical (4) Depression: Code(s): F32.A - Depression, unspecified Category: Medical (5) Family history of colon cancer: Code(s): Z80.0 - Family history of malignant neoplasm of digestive organs Category: Medical (6) Bright red rectal bleeding: Code(s): K62.5 - Hemorrhage of anus and rectum Category: Medical (7) Bilateral carotid bruits: Code(s): R09.89 - Other specified symptoms and signs involving the circulatory and respiratory systems Category: Medical (8) HTN (hypertension): Code(s): I10 - Essential (primary) hypertension Category: Medical Plan . Orders: Orders Complete Blood Count Auto Diff Today Z00.01 - Encounter for general adult medical examination with abnormal findings Comprehensive [place]. Panel Fast Today Z00. - Encounter for general adult medical examination with abnormal findings TSH reflex Free T4 Today Z00. - Encounter for general adult medical examination with abnormal findings UA CC w/rflx Micro + Cult Today Z00. - Encounter for general adult medical examination with abnormal findings Lipid Panel Today Z00.01 - Encounter for general adult medical examination with abnormal findings Vitamin D 25-OH Total Today Z00.01 - Encounter for general adult medical examination with abnormal findings XR DEXA axial skeleton Today E55.9 - Vitamin D deficiency, unspecified, Z78.0 - Asymptomatic menopausal state US carotid duplex BI Today R09.89 - Other specified symptoms and signs involving the circulatory and respiratory systems Referrals Gastroenterology Referral K62.5 - Hemorrhage of anus and rectum, Z80.0 - Family history of malignant neoplasm of digestive organs Medications: New citalopram 10 mg PO DAILY 30 tabs 3RF 30 days
[2025-03-05 10:27] VITALS: BP 158/78; PULSE 74; RESP 18; TEMP 37.2; O2SAT 95
[2025-03-05 11:10] VITALS: BP 140/80
== END 2025-03-05 11:25 | disposition home or self-care (01) ==
LOC: HO.HMCC 10:26
PROVIDERS: PCP Nurse Practitioner Family; Visit Provider Nurse Practitioner Family
DX: Z00.01 Encounter for general adult medical examination with abnormal findings (principal); E55.9 Vitamin D deficiency, unspecified; F32.A Depression, unspecified; K62.5 Hemorrhage of anus and rectum; I10 Essential (primary) hypertension; Z78.0 Asymptomatic menopausal state; Z80.0 Family history of malignant neoplasm of digestive organs; R09.89 Other specified symptoms and signs involving the circulatory and respiratory systems

== ENCOUNTER → 2025-03-05 10:24 | Outpatient (BNVA) | payer OTHER, SELFPAY | PROVIDERS: PCP Nurse Practitioner Family; Visit Provider Nurse Practitioner Family | DX: Z00.01 Encounter for general adult medical examination with abnormal findings (principal); F32.A Depression, unspecified; K64.9 Unspecified hemorrhoids; I10 Essential (primary) hypertension; E55.9 Vitamin D deficiency, unspecified; K62.5 Hemorrhage of anus and rectum; R09.89 Other specified symptoms and signs involving the circulatory and respiratory systems; F17.210 Nicotine dependence, cigarettes, uncomplicated; Z78.0 Asymptomatic menopausal state; Z80.0 Family history of malignant neoplasm of digestive organs; Z79.899 Other long term (current) drug therapy | CPT/HCPCS: 96127 ==

== ENCOUNTER 2025-03-14 07:21 | Outpatient (REF) | payer OTHER, SELFPAY ==
--- OUTSIDE RECORDS SUMMARY | 2023-11-03 06:15 | XMS_ITS ---
Author Organization [facility] Address [address] [place] [address] Care Team Providers Care Publishing Specialist Name Role Phone Raoul Smith Primary Care Provider Unav ailable Nati Samuel [phone] Encounters Encounter Location Date Provider Diagnosis [address] [address] 11/03/2023 Nati Samuel Plan Of Treatment No Information Progress Notes * Fredy SRB:1965 (59 yo F)Acc No.[id number]:11/03/2023 Progress Notes Patient: Yeimi PHILLIPS Provider: Bam Samuel DPM :1965 A ge:58 Y S ex:Female Date:11/03/2023 Address:[address] [place], [place] [id number] Pcp:JOSE ROBERTO López Subjective: * Chief Complaints: * * Medical History: Objective: * Vitals: Assessment: Plan: * Treatment: * Images: * The named appointment provid er may or may not be the originator of this progress note, and it is not deemed complete until electronically signed by the appointment provider. Sign off status: Pending * Provider: Bam Samuel DPM Date: 11/03/2023 Generated for Viktor zuluaga/Kerrie/eTransmitting on: 03/14/2025 07:23 AM EDT
--- OUTSIDE RECORDS SUMMARY | 2023-12-03 05:00 | XMS_ITS ---
Author Organization [facility] Address [address] [place] [address] Care Team Providers Care Burn Nurse Name Role Phone Raoul Smith Primary Care Provider Unav ailable Nati Samuel [phone] Encounters Encounter Location Date Provider Diagnosis [address] [address] 12/03/2023 Nati Samuel Plan Of Treatment No Information Progress Notes * Fredy SRB:1965 (59 yo F)Acc No.[id number]:12/03/2023 Progress Notes Patient: Yeimi PHILLIPS Provider: Bam Samuel DPM :1965 A ge:58 Y S ex:Female Date:12/03/2023 Address:[address] [place], [place] [id number] Pcp:JOSE ROBERTO López Subjective: * Chief Complaints: * * Medical History: Objective: * Vitals: Assessment: Plan: * Treatment: * Images: * The named appointment provid er may or may not be the originator of this progress note, and it is not deemed complete until electronically signed by the appointment provider. Sign off status: Pending * Provider: Bam Samuel DPM Date: 12/03/2023 Generated for Viktor zuluaga/Kerrie/eTransmitting on: 0 03/14/2025 07:24 AM EDT
--- NOTE | ~2025-03-14 | CT_ITS ---
CLINICAL HISTORY: F17.210 - Nicotine dependence, cigarettes, uncomplicated CT lung cancer screening (LDCT) Comparison: CT/SR - CT LUNG SCREENING - 06/12/22 14:14 EST Technique: Axial CT images of the chest using low-dose technique. Referring provider counseled the patient on shared decision-making for LDCT screening. Additional counseling was provided on smoking cessation. Effective radiation dose total: DLP 34.4 mGycm, CTDIvol 1.1 mGy. Findings: Lung: stable 5 mm right middle lobe pulmonary nodule which is solid. No suspicious pulmonary nodules or masses. Mild pulmonary emphysema. Similar appearance of diffuse interstitial thickening. Coronary artery calcifications: Moderate Limited upper abdomen: Unremarkable Other: None IMPRESSION: * No suspicious pulmonary nodules or masses. * Mild pulmonary emphysema. * Similar appearance of diffuse interstitial thickening concerning for interstitial lung disease. LungRADS 2 - Benign Appearance: Continue annual screening with low dose Chest CT in 12 months. ##L2# This document has been electronically signed by: Ace Gilmore DO on 03/14/2025 12:21:14
--- OUTSIDE RECORDS SUMMARY | 2025-03-14 07:24 | XMS_ITS | Patient Health Record ---
Author Organization [facility] Address [address] [place] [address] Care Team Providers Care Welder Name Role Phone Raoul Smith Primary Care Provider Unav ailable BuckritaNati Unavailable [phone] Allergies No Known Allergies Reason For Referral No Information Medications Medication SIG (Take, Route, Fr equency, Duration) Notes Start Date End Date Status Medrol hansel 4mg as directed orally a s directed; Duration: 6 days 10/14/2023 Active Social History Tobacco [...] Osteoarthritis of midtarsal joint of left foot ([id number] ) Osteoarthritis of midtarsal joint of left foot (M19.072) Active confirmed Problem Osteoarthritis of midtarsal joint of right foot (9113410618069812 ) Osteoarthritis of midtarsal joint of right [...] Coverage End Date Blue Benefits [address] [address] [place] [address] [id number] Yeimi Sr Self - patient is the insured Medical (General) History Medical History History ICD Code covid-19 Depression Gout Headaches/Migraines Surgical History Surgery Date(Month/Year) appendectomy tonsillectomy amputation non-specific section 02/08/81-06/02/89
== END 2025-03-14 07:22 | disposition home or self-care (01) ==
LOC: HO.CT 07:21
PROVIDERS: PCP Nurse Practitioner Family; Visit Provider Physician Assistant Medical
DX: Z12.2 Encounter for screening for malignant neoplasm of respiratory organs (principal); F17.210 Nicotine dependence, cigarettes, uncomplicated
CPT/HCPCS: 71271

== ENCOUNTER → 2025-03-14 07:22 | Outpatient (BNV) | payer OTHER, SELFPAY | PROVIDERS: PCP Nurse Practitioner Family; Visit Provider Family Medicine | DX: Z12.2 Encounter for screening for malignant neoplasm of respiratory organs (principal); F17.210 Nicotine dependence, cigarettes, uncomplicated | CPT/HCPCS: 71271 ==

== ENCOUNTER 2025-05-10 06:51 | Outpatient (AMB) | payer OTHER, SELFPAY ==
--- OUTSIDE RECORDS SUMMARY | 2023-12-03 05:00 | XMS_ITS ---
Author Organization [facility] Address [address] [place] [address] Care Team Providers Care Golf Coach Name Role Phone Raoul Smith Primary Care Provider Unav ailable Nati Samuel [phone] Encounters Encounter Location Date Provider Diagnosis [address] [address] 12/03/2023 Nati Samuel Plan Of Treatment No Information Progress Notes * Fredy SRB:1965 (59 yo F)Acc No.[id number]:12/03/2023 Progress Notes Patient: Yeimi PHILLIPS Provider: Bam Samuel DPM :1965 A ge:58 Y S ex:Female Date:12/03/2023 Address:[address] [place], [place] [id number] Pcp:JOSE ROBERTO López Subjective: * Chief Complaints: * * Medical History: Objective: * Vitals: Assessment: Plan: * Treatment: * Images: * The named appointment provid er may or may not be the originator of this progress note, and it is not deemed complete until electronically signed by the appointment provider. Sign off status: Pending * Provider: Bam Samuel DPM Date: 0 12/03/2023 Generated for Viktor zuluaga/Kerrie/eTransmitting on: 06:54 AM EDT
--- OUTSIDE RECORDS SUMMARY | 2025-05-10 06:54 | XMS_ITS | Patient Health Record ---
Author Organization [facility] Address [address] [place] [address] Care Team Providers Care Fulling Mill Operator Name Role Phone Raoul Smith Primary Care Provider Unav ailable BuckritaNati Unavailable [phone] Allergies No Known Allergies Reason For Referral [...] Osteoarthritis of midtarsal joint of left foot ([id number] ) Osteoarthritis of midtarsal joint of left foot (M19.072) Active confirmed Problem Osteoarthritis of midtarsal joint of right foot ([id number] ) Osteoarthritis of midtarsal joint of right [...] Coverage End Date Blue Benefits [address] [address] [place] [address] [id number] Yeimi Sr Self - patient is the insured Medical (General) History Medical History History ICD Code covid-19 Depression Gout Headaches/Migraines Surgical History Surgery Date(Month/Year) appendectomy tonsillectomy amputation non-specific section 02/08/81-06/02/89
--- NOTE | 2025-05-10 07:30 | MHC.PC.OV ---
Intake Visit Reasons: 2 month follow up Allergies No Known Allergies Allergy (Verified 03/05/25 11:24) Medication List - Last Reconciled 05/10/25 by TONNY Canas citalopram 10 mg PO DAILY 30 days Tobacco use date assessed: 03/05/25 Dental Screening Dental Screen Date: 03/05/25 HPI 2 month follow up HPI Details History of Present Illness The patient is a 59-year-old female presenting for a follow-up on Celexa. She has been taking Celexa 10 mg for approximately two months and reports a positive change, feeling much better. The patient denies any suicidal or homicidal ideation and currently does not wish to see a therapist. Review of Systems - Psychiatric: Reports improved mood. Denies suicidal or homicidal ideation. - Cardiovascular: Denies chest pain. - Respiratory: Denies increased shortness of breath. Plan 1. Depression The patient has been taking Celexa 10 mg for two months and reports a significant positive change in her mood. She denies suicidal or homicidal ideation. Given the positive response and good tolerance, the plan is to continue Celexa 10 mg daily. The patient declined a referral to a therapist at this time. Discussion Notes I reviewed the patient's progress on Celexa 10 mg, which she started approximately two months ago. She reports feeling much better and experiencing a positive change. The patient denied any suicidal or homicidal ideation. We agreed to continue the current medication at the same dose. The patient stated she does not wish to see a therapist at this time. Patient Instructions - Continue to take Celexa 10 mg once a day. - Contact the office if your mood changes or if you have any thoughts of harming yourself or others. - You have declined to see a therapist at this time, but let us know if you change your mind. [facility] Medical History Systolic murmur Depression Tubular adenoma of colon Family history of colon cancer Kienbock's disease Nicotine dependence, cigarettes, uncomplicated Surgical History History of cataract surgery History of colonoscopy Hx of tubal ligation History of excision of mass History of surgery on right wrist History of tonsillectomy History of appendectomy History of Social History Household Members: Spouse Housing: House Are you a primary tire care manager to a significant other at home: No Do you presently have visiting nurse or other home services: No Alcohol intake: never Patient Tobacco Use Status: Current everyday Tobacco user Tobacco use type: Cigarette Cigarette Packs Per Day: 1 Cigarettes Per Day: 20.0 Years Smoked: 50 e-Cigarette/Vaping Use: Never Used Second Hand Smoke Exposure: Yes service: No Current occupational status: employed Current occupation: [employer] [place] [employer] Current occupational exposures/hazards: No Sexual orientation: Straight/Heterosexual Gender identity: Female Cognitive needs: No Hearing needs: No Vision needs: No Questionnaire Thrive Questionnaire Date Thrive assessed: 03/02/25 I am a: Patient What is your living situation today?: I have a steady place to live Within the past 12 months, did the food you bought not last and you didn't have the money to get more?: Never true Within the past 12 months, did you worry whether your food would run out before you got money to buy more?: Never true Do you have trouble paying for medicines?: No Do you have trouble getting transportation to medical appointments?: No Do you have trouble paying your heating and electricity bill?: No Do you have trouble taking care of your child, family member or friend?: No Do you have trouble with day-to-day activities such as bathing, preparing meals, shopping, managing finances, etc.?: No Are you currently unemployed and looking for a job?: No Are you interested in more education?: No Please select the resources that you would like help with: None Currently or been in a relationship where the following occur: No concerns reported THRIVE Score: 0 MAURICE-7 AMB Questionnaire MAURICE-7 Date MAURICE - 7 assessed: 03/05/25 Source: Developed by Drs. Darek Hu, Luciana Dotson, Shelton Ferris and colleagues, with an educational ayaz from [employer]. Physical exam (Primary Care) Tobacco/Smoking Status: Tobacco use Status Tobacco use date assessed 03/05/25 03/05/25 10:33 Patient Tobacco Use Status Current everyday Tobacco 03/05/25 10:33 Tobacco use type Cigarette 03/05/25 10:33 e-Cigarette/Vaping Use Never Used 03/05/25 10:33 Thrive Assessment: Date of Thrive Assessment Date Thrive assessed 03/02/25 03/05/25 10:33 Currently or been in a relationship where the following occur: No concerns reported Telehealth Telehealth Telehealth Platform: [employer] Location of provider rendering services: practice address Location of patient: address on file Patient Identification confirmed using: Name, : Yes Telehealth method: video Patient verbally consented to treatment: Yes Patient verbally consented to billing insurance company: Yes Patient informed of any privacy concerns related to visit: Yes Minutes spent on Phone/Video with Pt.: 10 Coding Level of Care Code Tele Est Pt Level 3 (09676) Diagnoses Depression F32.A Assessment & Plan Assessment & Plan (1) Depression: Code(s): F32.A - Depression, unspecified Category: Medical Plan . Medications: Refilled citalopram 10 mg PO DAILY 30 tabs 3RF 30 days
== END 2025-05-10 10:16 | disposition home or self-care (01) ==
LOC: HO.HMCC 06:52
PROVIDERS: PCP Nurse Practitioner Family; Visit Provider Nurse Practitioner Family
DX: F32.A Depression, unspecified (principal)

== ENCOUNTER 2025-05-21 10:21 | Outpatient (REF) | payer OTHER, SELFPAY ==
--- NOTE | ~2025-05-21 | US_ITS ---
CLINICAL HISTORY: R09.89 - bilat carotid bruits US Bilateral Carotid Duplex Comparison: None provided Findings: No significant plaque within the common carotid arteries. Mild soft plaque within the carotid bulbs. Color doppler and spectral tracings normal. Peak systolic velocities: Right CCA: 82 cm/s. Right ICA: 73 cm/s. ICA/CCA ratio: Normal. Right ECA: 94.4 cm/s. Right vertebral artery flow antegrade. Left CCA: 93 cm/s. Left ICA: 203 cm/s. ICA/CCA ratio: Normal. Left ECA: 97.8 cm/s. Left vertebral artery flow antegrade. A couple of normal morphology lymph nodes were documented within the soft tissues, most likely inflammatory. IMPRESSION: 1. Elevated velocity within the left ICA suggesting stenosis in the range of 50-79%. This document has been electronically signed by: Stephanie Beasley MD on 05/22/2025 15:52:11
== END 2025-05-21 10:22 | disposition home or self-care (01) ==
LOC: HO.US 10:21
PROVIDERS: PCP Nurse Practitioner Family; Visit Provider Nurse Practitioner Family
DX: R09.89 Other specified symptoms and signs involving the circulatory and respiratory systems (principal)
CPT/HCPCS: 93880

== ENCOUNTER → 2025-05-21 10:23 | Outpatient (BNV) | payer OTHER, SELFPAY | PROVIDERS: PCP Nurse Practitioner Family; Visit Provider Radiology Diagnostic Radiology | DX: R09.89 Other specified symptoms and signs involving the circulatory and respiratory systems (principal) | CPT/HCPCS: 93880 ==

== ENCOUNTER 2025-06-04 15:48 | Outpatient (REF) | payer OTHER, SELFPAY ==
[2025-06-04 17:05] LABS: Hematocrit 39.7 % (37.0-47.0); Hemoglobin 13.0 g/dl (12.0-16.0); Mean Corpuscular HGB Conc 32.7 g/dl (31.0-35.0); Mean Corpuscular Hemoglobin 28.4 pg (27.0-33.0); Mean Corpuscular Volume 86.9 fL (80.0-98.0); NRBC Abs Auto 0.000 X10*3/uL (0.0-0.012); NRBC Pct Auto 0.0 /100WBC (0.0-0.2); Platelet Count 257 X10*3/uL (160-400); Red Blood Count 4.57 X10*6/uL (4.20-5.50); White Blood Count 9.0 X10*3/uL (4.8-10.8)
[2025-06-04 17:36] LABS: Iron 36 mcg/dL (30-160); Percent Iron Saturation 14 % (15-50); Total Iron Binding Capacity 256 mcg/dL (228-428); Unsaturated Iron Binding 220 ug/dL
[2025-06-04 17:54] LABS: Ferritin 146 ng/mL (10-250)
== END 2025-06-04 15:49 | disposition home or self-care (01) ==
LOC: HO.LAB 15:48
PROVIDERS: PCP Nurse Practitioner Family; Visit Provider Internal Medicine
DX: K62.5 Hemorrhage of anus and rectum (principal); Z86.0100 Personal history of colon polyps, unspecified
CPT/HCPCS: 36415; 82728; 83540; 85027

== ENCOUNTER → 2025-06-04 15:48 | Outpatient (AMB) | payer OTHER, SELFPAY ==
--- NOTE | 2025-06-04 15:49 | MHC.OFFVIS ---
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 08/11/22: No gastrointestinal complaints at this time to include abd pain, N,V, changes in bowel habits or blood in stool. Last colonoscopy was in 2014 (Dr Brooks) was told has polyps and to come back in 3 years. Fam hx pertinent for metastatic colon cancer in brother in his early 40s. Maternal aunt breast ca in her 50s. Pt smokes 10-15 cigaretters. No etOH use. No IVDU. Colonoscopy 11/12/22 (Dr Ascencio): Four polyps removed (10 mm in transverse colon) Moderate diverticulosis seen in the left and transverse colon Moderate hemorrhoids on retroflexed exam. Path: A. Colon, ascending, polypectomy: Colonic mucosa with prominent lymphoid aggregate and mild surface hyperplastic changes. B. Colon, transverse, polypectomy: Fragments of tubular adenoma; negative for high-grade dysplasia or carcinoma. C. Rectum, polypectomies: Hyperplastic mucosal polyps. 11/27/22: No acute gastrointestinal complaints today. [place] and path reviewed with the pt. 06/04/25: Here for follow up as she is due for a colo in 2025. Pt also reports rectal bleeding x 3 months. Has a BM 2-3 times a day but does not strain. BMs are not hard. Does not take fiber or laxative. Reports notices bright red blood after defecation, with brown colored stool, no clots. Labs ordered by PCP which are still pending. [facility] Medical History Systolic murmur Depression Tubular adenoma of colon Family history of colon cancer Kienbock's disease Nicotine dependence, cigarettes, uncomplicated Surgical History History of cataract surgery History of colonoscopy Hx of tubal ligation History of excision of mass History of surgery on right wrist History of tonsillectomy History of appendectomy History of Social History Household Members: Spouse Housing: House Are you a primary care information associate to a significant other at home: No Do you presently have visiting nurse or other home services: No Alcohol intake: never Patient Tobacco Use Status: Current everyday Tobacco user Tobacco use type: Cigarette Cigarette Packs Per Day: 1 Cigarettes Per Day: 20.0 Years Smoked: 50 e-Cigarette/Vaping Use: Never Used Second Hand Smoke Exposure: Yes service: No Current occupational status: employed 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 Current occupational exposures/hazards: No Sexual orientation: Straight/Heterosexual Gender identity: Female Cognitive needs: No Hearing needs: No Vision needs: No Review of Systems Const All systems reviewed & are unremarkable except as noted in HPI and below Physical Exam Exam Exam: No apparent distress Nonicteric Abdomen soft, nondistended Alert and oriented x3, normal gait Vital Signs: Last Vital Signs Pulse 79 06/04/25 15:50 BP 136/76 06/04/25 15:50 BMI result Body Mass Index 28.8 Assessment & Plan Assessment & Plan (1) Bright red rectal bleeding: Code(s): K62.5 - Hemorrhage of anus and rectum Category: Medical Plan Reviewed with the pt that description consistent with outlet bleeding however given significant family history, +personal history of polyps, she is due for colonoscopy anyway. Order placed. Will get CBC and iron studies. If has significant anemia, colonoscopy to be scheduled as urgent. PEG prep prescribed to the patient, instructions reviewed. Handout provided. Follow-up after colonoscopy Orders: Orders Complete Blood Count no Diff Today K62.5 - Hemorrhage of anus and rectum Ferritin Today K62.5 - Hemorrhage of anus and rectum IRON PROFILE Today K62.5 - Hemorrhage of anus and rectum Referrals GI Procedure Notification K62.5 - Hemorrhage of anus and rectum Medications: New peg 3350-electrolytes 236-22.74-6.74 -5.86 gram (Golytely) as per split prep instructions, until fecal effluent is clear 240 mL PO Q10M 4,000 mL 0RF colonoscopy Coding Level of Care Code Est Pt Level 4 (98960) Diagnoses Bright red rectal bleeding K62.5
[2025-06-04 15:50] VITALS: BP 136/76; PULSE 79; BMI 28.8
== END ==
PROVIDERS: PCP Nurse Practitioner Family; Visit Provider Internal Medicine
DX: K62.5 Hemorrhage of anus and rectum (principal)
CPT/HCPCS: 99214

== ENCOUNTER 2025-06-15 07:47 | Outpatient (REF) | payer OTHER, SELFPAY ==
--- NOTE | ~2025-06-15 | MM_ITS ---
EXAMINATION: DXA BONE DENSITY AXIAL HISTORY: E55.9 - Vitamin D deficiency, unspecified TECHNIQUE: [employer] Dual energy absorptiometry (DEXA) of the lumbar spine, total left hip, and femoral neck was performed. COMPARISON: There are no prior studies for comparison. FINDINGS: The bone mineral density of the lumbar spine is 1.245 g/cm2, corresponding to a T-score of 0.5, and a Z-score of 1.5. This is indicative of normal bone mineral density. The bone mineral density of the left total hip is 0.855 g/cm2, corresponding to a T-score of -1.2, and a Z-score of -0.5. This is indicative of osteopenia. The bone mineral density of the left femoral neck is 0.843 g/cm2, corresponding to a T-score of -1.4, and a Z-score of -0.3. This is indicative of osteopenia. FRACTURE RISK: The FRAX index suggests a risk of major osteoporotic fracture of 7.8%, and of hip fracture 1.1%. MM/XR DEXA axial skeleton IMPRESSION: Based on bone mineral density, and according to World Health Organization (WHO) criteria, the diagnosis is consistent with osteopenia. Statistically, 68% of repeat scans fall within 1 SD (+/- 0.010 g/cm2 for AP spine L1-L4) and 1 SD (+/- 0.012 g/cm2 for femur total) FRAX is a trademark of the [employer]'s [place] [facility] Met[facility] [employer] Disease, a World Health Organization (WHO) Collaborating Center. Electronically signed by: Darek Griffin MD 06/15/2025 09:00 AM [facility]
--- NOTE | ~2025-06-15 | MM_ITS ---
EXAMINATION: MM SCREENING DIGITAL BREAST TOMOSYNTHESIS, BILATERAL CLINICAL INFORMATION: Screening. Asymptomatic. COMPARISON: Mammography: Comparison is made with available priors TECHNIQUE: Digital breast mammography with tomosynthesis is performed in both the craniocaudal and mediolateral oblique views along with computer-aided detection (CAD). FINDINGS: There are scattered areas of fibroglandular density. There are no significant masses, abnormal calcifications, or other abnormalities. MM/MM tomosynthesis screening BI IMPRESSION: No mammographic evidence of malignancy. ASSESSMENT: BI-RADS Category 1: Negative RECOMMENDATION: Routine annual mammography screening. 1 year F/U This examination should not preclude the clinical evaluation of a suspicious palpable abnormality. This patient's information was entered into a reminder system with a target due date for their next mammogram. Electronically signed by: Melvina Otto DO 06/18/2025 04:31 PM [facility]
== END 2025-06-15 07:48 | disposition home or self-care (01) ==
LOC: HO.MAMMO 07:47
PROVIDERS: PCP Nurse Practitioner Family; Visit Provider Nurse Practitioner Family
DX: Z12.31 Encounter for screening mammogram for malignant neoplasm of breast (principal); E55.9 Vitamin D deficiency, unspecified; Z78.0 Asymptomatic menopausal state
CPT/HCPCS: 77063; 77067; 77080

== ENCOUNTER → 2025-06-15 08:45 | Outpatient (BNV) | payer OTHER, SELFPAY | PROVIDERS: PCP Nurse Practitioner Family; Visit Provider Radiology Diagnostic Radiology | DX: Z12.31 Encounter for screening mammogram for malignant neoplasm of breast (principal) | CPT/HCPCS: 77063; 77067; 77080 ==